=== PATIENT | female | born 2000 | race African-American/Black ===

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

== ENCOUNTER 2022-01-07 14:53 | Emergency (ER) | payer MEDICAID, OTHER ==
[~2022-01-07] VITALS: Ht 157.5 cm; Wt 68.0 kg
[2022-01-07] MEDS ORDERED: ONDANSETRON HCL 4 MG/2 ML VIAL IV ONE (16:00)
[2022-01-07] MEDS ORDERED: SODIUM CHLORIDE 0.9% 1,000 ML IV ONE (16:00)
[2022-01-07] MEDS ORDERED: MORPHINE SULFATE 4 MG/ML SYR/VIAL IV ONE (16:00)
[2022-01-07 18:38] VITALS: BP 123/56
[2022-01-07] MEDS ORDERED: IBU600T PO (19:04)
[2022-01-07] MEDS ORDERED: NEOMOIN6 EX (19:04)
== END 2022-01-07 19:44 | disposition home or self-care (01) ==
LOC: ER 14:53 → EDBD 14:53 → ER 19:44
DX: S00.83XA Contusion of other part of head, initial encounter (principal); G89.4 Chronic pain syndrome; M79.18 Myalgia, other site; V43.62XA Car passenger injured in collision with other type car in traffic accident, initial encounter; Y93.89 Activity, other specified; Y92.89 Other specified places as the place of occurrence of the external cause; Y99.8 Other external cause status
CPT/HCPCS: 70450; 70486; 71250; 72125; 74176; 96361; 96374; 96375; 99285; J2270; J2405; J7030

== ENCOUNTER 2025-01-27 10:50 | Inpatient (IN) | payer MEDICAID, OTHER ==
[~2025-01-27] VITALS: Ht 167.6 cm; Wt 95.5 kg
[~2025-01-27 10:50] MED LIST: IBU600T PO; NEOMOIN6 EX
--- NOTE | 2025-01-27 10:55 | ED.PDOC ---
HPI (NEURO) HPI Comments 24 y.o female with PMHx of seizures, presents to the ED via EMS for an evaluation of a witness seizure by staff at school today. EMS reports on scene, they witnessed another 5 seizures and administrated 5mg of versed. Per parent, patient is on Keppra 1,000mg twice a day, last seizure was one week ago and was taken to [facility] then. Patient has not recently seen her neurologist, been ill, sick contact, fever, or chills. Time Seen by MD: 10:52 Primary Care Provider: UNKNOWN Reviewed Notes: Nurses Notes, Astronomy Department Chair Notes, Medications, Allergies Information Source: Emergency Med Personnel Mode of Arrival: EMS Severity: Moderate Timing: Hours Duration: Since onset Prehospital treatment: Treatment (5mg versed ) Seizure Quality: Tonic-clonic, Mulitple Episodes Seizure Location: Generalized Onset: At rest Circumstances: Spontaneous Symptoms: None Before: Normal During: LOC After: Normal Mentation History of: Seizure Disorder Modifying factors: Nothing Past Medical History PAST MEDICAL HISTORY: Seizures Surgical History: Denies all surgeries AUDIO/VIDEO ENGINEER History: No Pertinent AUDIO/VIDEO ENGINEER History Family History Family History: Unknown Social History Smoker: Non-Smoker Alcohol: Denies ETOH Use Drugs: Denies Drug Use Lives In: Home Constitutional: denies: chills, diaphoresis, fatigue, fever, malaise, sweats, weakness, others EENTM: denies: blurred vision, double vision, ear bleeding, ear discharge, ear drainage, ear pain, ear ringing, eye pain, eye redness, hearing loss, mouth pain, mouth swelling, nasal discharge, nose bleeding, nose congestion, nose pain, photophobia, tearing, throat pain, throat swelling, voice changes, others Respiratory: denies: cough, hemoptysis, orthopnea, SOB at rest, shortness of breath, SOB with excertion, stridor, wheezing, others Cardiovascular: denies: chest pain, dizzy spells, diaphoresis, Dyspnea on exertion, edema, irregular heart beat, left arm pain, lightheadedness, palpitations, PND, syncope, others Gastrointestinal: denies: abdomen distended, abdominal pain, blood streaked bowels, constipated, diarrhea, dysphagia, difficulty swallowing, hematemesis, melena, nausea, poor appetite, poor fluid intake, rectal bleeding, rectal pain, vomiting, others Genitourinary: denies: abnormal vagina bleeding, burning, dyspareunia, dysuria, flank pain, frequency, hematuria, incontinence, pain, , vagina discharge, urgency, others Neurological: reports: seizure; denies: dizziness, fainting, headache, left sided numbness, left sided weakness, numbness, paresthesia, pre-existing deficit, right sided numbness, right sided weakness, speech problems, tingling, tremors, weakness, others Musculoskeletal: denies: back pain, gout, joint pain, joint swelling, muscle pain, muscle stiffness, neck pain, others Integumetry: denies: bruises, change in color, change in hair/nails, dryness, laceration, lesions, lumps, rash, wounds, others Allergic/Immunocompromised: denies: Difficulty Healing, Frequent Infections, Hives, Itching, others Hematologic/Lymphatic: denies: anemia, blood clots, easy bleeding, easy bruising, swollen glands, others Endocrine: denies: excessive hunger, excessive sweating, excessive thirst, excessive urination, flushing, intolerance to cold, intolerance to heat, unexplained weight gain, unexplained weight loss, others Psychiatric: denies: anxiety, bipolar disorder, depression, hopeless, panic disorder, schizophrenia, sleepless, suicidal, others All Other Systems: Reviewed and Negative Physical Exam General Appearance: Moderate Distress HEENT: Normal ENT Inspection, Pharynx Normal, TMs Normal Neck: Full Range of Motion, Non-Tender, Normal, Normal Inspection Respiratory: Chest Non-Tender, Lungs Clear, No Accessory Muscle Use, No Respiratory Distress, Normal Breath Sounds Cardiovascular: No Edema, No JVD, No Murmur, No Gallop, Normal Peripheral Pulses, Regular Rate/Rhythm Breast Exam: Deferred Gastrointestinal: No Organomegaly, Non Tender, No Pulsatile Mass, Normal Bowel Sounds, Soft Genitalia: Deferred Pelvic: Deferred Rectal: Deferred Extremities: No calf tenderness, No pedal edema Musculoskeletal : Apperance: Normal Neurologic: Disoriented Cerebellar Function: NOT DONE Reflexes: NOT DONE Skin: Normal Color Peripheral Pulses: 3+ Radial (R), 3+ Radial (L) Lymphatic: No Adenopathy Was a procedure done? Was a procedure done?: No Differential Diagnosis (SZ) Seizure: Psychogenic Seizure, Closed Head Injury, CVA/TIA, Syncope, Encephalopathy, Epilepsy-Break Through, Epilepsy-Status X-Ray, Labs, Meds, VS Vital Signs Date Time Temp Pulse Resp B/P (MAP) Pulse Ox O2 Delivery O2 Flow Rate FiO2 01/27/25 10:54 98.1 93 20 130/82 (98) 98 98.1 Patient is slightly disoriented. Vitals stable. Seizure disorder. Saturation pristine on room air. Blood pressure within normal limits. Witnessed seizure. Establish intravenous access. Was given fluids pain Was given Keppra. Waiting for family. Time of 1ST Reevaluation: 10:54 Reevaluation 1ST: Unchanged Patient Education/Counseling: Diagnosis, Treatment, Prognosis Family Education/Counseling: Diagnosis, Treatment, Prognosis Departure 1 Departure Time of Disposition: 11:00 Impression: Primary Impression: Metabolic encephalopathy Additional Impression: Seizure Disposition: 09 ADMITTED INPATIENT Admit to: Med Surg Condition: Guarded Critical Care Note Critical Care Time?: Yes (45 min-critical care time only) Critical care comment: Seizure Stability Stability form required: No I personally scribed for IKE CAMPBELL MD ([email or web address]) on 01/27/25 at 10:55. Electronically submitted by Snow Bernal ([facility]). IKE CAMPBELL MD Jan 27, 2025 10:55
[2025-01-27 11:22] LABS: Urine Bacteria None Seen /hpf (None Seen)
[2025-01-27] MEDS: SODIUM CHLORIDE 0.9% 1,000 ML IV ONE ×2 (11:23→15:34)
[2025-01-27] MEDS: levETIRAcetam 1000 mg/100ml 100 ML IV ONE (11:23)
[2025-01-27] MEDS: LORazepam 2MG/ML-1ML VIAL IV ONE ×2 (11:25→18:28)
[2025-01-27 11:37] LABS: Urine Blood 2+ /uL (Negative); Urine Clarity Clear (Clear); Urine Color Colorless (Yellow); Urine Protein, UAD Negative (Negative); Urine Specific Gravity 1.002 (1.001-1.035); Urine Squamous Epithelial Cell FEW /hpf (<5); Urine Urobilinogen Normal (Negative)
[2025-01-27 11:38] LABS: Basophils # (auto) 0 10 ^3/uL (0-0.2); Eosinophils # (auto) 0.1 10 ^3/uL (0-0.8); Hemoglobin 10.5 g/dL (12.2-16.2); Mean Corpuscular Hemoglobin 25.8 pg (28.0-32.0)
[2025-01-27 11:40] LABS: Basophils % (auto) 0.7 % (0.0-2.0); Eosinophils % (auto) 1.1 % (0.0-7.0); Hematocrit 32.6 % (36.0-46.0); Lymphocytes # (auto) 1.8 10 ^3/uL (0.4-5.4); Lymphocytes % (auto) 27.5 % (10.0-50.0); Mean Corpuscular Hgb Conc. 32.3 g/dL (32.0-36.0); Mean Corpuscular Volume 79.9 fL (80.0-100.0); Monocytes # (auto) 0.5 10 ^3/uL (0-1.3); Neutrophils # (auto) 4.2 10 ^3/uL (1.6-8.6); Neutrophils % (auto) 62.7 % (37.0-80.0); Nucleated Red Blood Cells % 0.2 %; Platelet Count (auto) 411 10^3/uL (140-450); Red Blood Cells 4.08 10^6/uL (4.0-5.20); Red Cell Distribution Width 17.3 % (11.8-14.3); White Blood Cell 6.7 10^3/uL (4.4-10.8)
[2025-01-27 11:45] LABS: Chloride 102 mmol/L (98-107); Potassium 4.4 mmol/L (3.5-5.1)
[2025-01-27 11:46] LABS: Anion Gap 8 (5-15); Carbon Dioxide 25 mmol/L (20-31)
[2025-01-27 11:47] LABS: Calcium 10.2 mg/dL (8.7-10.4); Sodium 135 mmol/L (136-145)
[2025-01-27] MEDS: LORazepam 2MG/ML-1ML VIAL ONE (11:48)
[2025-01-27 11:51] LABS: Glucose 86 mg/dL (74-106)
[2025-01-27 11:52] LABS: BUN/Creatinine Ratio 12.8 (10.0-20.0); Blood Urea Nitrogen 11 mg/dL (9-23)
--- NOTE | 2025-01-27 13:23 | DVHHP2 ---
Admitting Diagnosis: Seizure History of Present Illness 24 y/o female patient with history of seizures presents with c/o seizure. Patient was reportedly at school where she had witnessed seizure. EMS witnessed additional seizures and administered Versed. Patient takes Keppra. While in the emergency department the patient was evaluated by the provider, As per provider: Labs, vital signs, and imagining monitored. Patient will be admitted for further evaluation and treatment. I discussed admission with the patient/family and is in agreement to treatment plan. Allergies: Coded Allergies: NO KNOWN ALLERGIES (Unverified , 01/27/25) Home Meds Active Scripts Medroxyprogesterone Acetate (PROVERA) 5 Mg Tab, 2 TAB PO DAILY for 10 Days, #20 TAB Prov:AVEL LARSON BSN 01/28/25 Ibuprofen Micronized (MOTRIN TABLET) 600 Mg Tb, 600 MG PO TID PRN for 10 Days, #30 TAB *Black box warning-NSAIDS can increase risk of CT & hypertension, GI irritation, ulceration, bleed, perferation. Do not use post cardiac surgery. Use short duration/lowest effective dose. Prov:IKE CAMPBELL MD 01/07/22 Rtmgafnw-Melsiagvai-Nialohhzf- (Neosporin + Pain Relief) Relf Max Oin, 1 MAX EX DAILY for 7 Days, #5 OIN Prov:IKE CAMPBELL MD 01/07/22 Reported Medications Diazepam (Anticonvulsant) (Valtoco) 5 Mg/0.1 Ml Spr, 1 SPRAY TIN PRN 01/28/25 Current Medications Current Medications Medications (Trade) Dose Ordered Sig/Raul Route PRN Reason Start Time Stop Time Status Last Admin Enoxaparin Sodium (Lovenox) 40 mg DAILY SC 01/28/25 10:00 01/28/25 09:51 DC Pantoprazole Sodium (Protonix) 40 mg DAILY IV 01/28/25 10:00 01/28/25 09:51 DC 01/28/25 09:33 Levetiracetam 100 ml @ 400 mls/hr BID IV 01/27/25 22:00 01/28/25 09:32 Lorazepam (Ativan Inj) 2 mg Q3HPRN PRN IV SEIZURES 01/28/25 10:00 01/28/25 18:34 Medroxyprogesterone Acetate (Provera Tablet) 10 mg DAILY PO 01/29/25 10:00 Review of Systems Constitutional: denies chills, denies fever, denies malaise Eyes: denies eye pain, denies vision change ENT: denies ear pain, denies headache, denies nasal congestion, denies painful swallowing, denies voice change Cardiovascular: denies chest pain, denies edema, denies orthopnea, denies palpitations, denies paroxysmal nocturnal dyspnea Respiratory: denies cough, denies shortness of breath Gastrointestinal: denies constipation, denies diarrhea, denies nausea, denies vomiting Genitourinary: denies dysuria, denies frequent urination, denies urethral discharge Musculoskeletal: denies back pain, denies joint pain, denies muscle pain Skin: denies bruising, denies itching, denies rash Neurological: denies focal weakness, denies headache, denies sensory changes Psychiatric: denies anxiety, denies depression Endocrine: denies polydipsia, denies polyuria Hematologic/Lymphatic: denies easy bleeding, denies easy bruising, denies enlarged lymph nodes Allergic/Immunologic: denies allergy, denies hives Vital Signs Vital Signs Date Time Temp Pulse Resp B/P (MAP) Pulse Ox O2 Delivery O2 Flow Rate FiO2 01/28/25 17:00 97.5 78 19 125/92 (103) 99 97.5 01/28/25 08:00 Room Air* 0 21 Physical Exam General Appearance: alert, no distress HEENT: EOMI, PERRLA, normal external inspect of ears, no icterus, no nasal drainage Neck: no carotid bruit, no jugular venous distention (JVD), no lymphadenopathy Chest: normal thorax Respiratory: clear to auscultation, normal air movement Cardiovascular: regular rate and rhythm, no diastolic murmur, no jugular venous distention (JVD), no rub, no systolic murmur Abdominal: soft, no hepatomegaly, no mass, no splenomegaly, no tenderness Genitourinary: grossly normal external Musculoskeletal: no joint tenderness, no swelling Extremities: normal pulses, no calf tenderness, no clubbing, no cyanosis, no edema Skin: no bruising, no jaundice, no rash Neurological: alert, No focal deficit Results Labs Test 01/28/25 18:30 01/28/25 05:15 01/27/25 11:00 Range/Units POC Glucose 114 H 70-106 mg/dl White Blood Count 7.3 4.4-10.8 10^3/uL Red Blood Count 3.94 L 4.0-5.20 10^6/uL Hemoglobin 10.0 L 12.2-16.2 g/dL Hematocrit 30.9 L 36.0-46.0 % Mean Corpuscular Volume 78.6 L 80.0-100.0 fL Mean Corpuscular Hemoglobin 25.5 L 28.0-32.0 pg Mean Corpuscular Hemoglobin Concent 32.5 32.0-36.0 g/dL Red Cell Distribution Width 17.3 H 11.8-14.3 % Platelet Count 390 140-450 10^3/uL Mean Platelet Volume 7.8 6.9-10.8 fL Neutrophils (%) (Auto) 62.3 37.0-80.0 % Lymphocytes (%) (Auto) 29.3 10.0-50.0 % Monocytes (%) (Auto) 6.0 0.0-12.0 % Eosinophils (%) (Auto) 2.0 0.0-7.0 % Basophils (%) (Auto) 0.4 0.0-2.0 % Neutrophils # (Auto) 4.6 1.6-8.6 10 ^3/uL Lymphocytes # (Auto) 2.1 0.4-5.4 10 ^3/uL Monocytes # (Auto) 0.4 0-1.3 10 ^3/uL Eosinophils # (Auto) 0.1 0-0.8 10 ^3/uL Basophils # (Auto) 0 0-0.2 10 ^3/uL Nucleated Red Blood Cells 0.1 % Sodium Level 137 136-145 mmol/L Potassium Level 4.0 3.5-5.1 mmol/L Chloride Level 104 98-107 mmol/L Carbon Dioxide Level 23 20-31 mmol/L Anion Gap 10 5-15 Blood Urea Nitrogen 10 9-23 mg/dL Creatinine 0.79 0.550-1.02 mg/dL Glomerular Filtration Rate Calc 108 >90 mL/min BUN/Creatinine Ratio 12.7 10.0-20.0 Serum Glucose 82 74-106 mg/dL Calcium Level 9.6 8.7-10.4 mg/dL Total Bilirubin 0.4 0.2-1.0 mg/dL Aspartate Amino Transferase (AST) 19 13-40 U/L Alanine Aminotransferase (ALT) 14 7-40 U/L Alkaline Phosphatase 57 46-116 U/L Total Protein 7.6 5.7-8.2 g/dL Albumin 4.3 3.2-4.8 g/dL Urine Color Colorless Yellow Urine Clarity Clear Clear Urine pH 6.0 5.0-9.0 Urine Specific [place] 1.002 1.001-1.035 Urine Protein Negative Negative Urine Ketones Negative Negative Urine Blood 2+ H Negative /uL Urine Nitrite Negative Negative Urine Bilirubin Negative Negative Urine Urobilinogen Normal Negative mg/dL Urine Leukocyte Esterase Negative Negative /uL Urine RBC None seen 0 - 4 /hpf Urine Microscopic WBC 0-5 /HPF Urine Squamous Epithelial Cells Few <5 /hpf Urine Bacteria None seen None Seen /hpf Urine Glucose Normal Normal mg/dL Plan 1. Breakthrough seizure Monitor, seizure precautions, antiepileptics, neurology consult 2. Obesity Monitor, cardiac diet 3. Epilepsy Monitor, antiepileptics, neurology consult Plan discussed with: Patient, Other ALE BIANCHI NP Jan 27, 2025 13:23
[2025-01-27] MEDS ORDERED: NITROGLYCERIN 0.4 MG SL TAB SL PRN (13:30)
[2025-01-27] MEDS ORDERED: ACETAMINOPHEN 325 MG TAB PO PRN (13:30)
[2025-01-27] MEDS ORDERED: HYDROcodone-ACET 5/325MG TAB PO PRN (13:30)
[2025-01-27] MEDS ORDERED: MORPHINE SULFATE INJ 2 MG/ml SYRG IV PRN (13:30)
[2025-01-27 19:30] VITALS: PULSE 72; RESP 17; O2SAT 100
[2025-01-27 21:02] VITALS: BP 117/55; PULSE 68; RESP 18; TEMP 98.5; O2SAT 98
[2025-01-27] MEDS: levETIRAcetam 1000 mg/100ml 100 ML IV SCH (22:24)
[2025-01-28] VITALS (8 sets, daily range): BP systolic 101–125; BP diastolic 52–92; PULSE 60–78; RESP 16–99; TEMP 97.5–98.3; O2SAT 98–100
[2025-01-28 07:03] LABS: Basophils # (auto) 0 10 ^3/uL (0-0.2); Basophils % (auto) 0.4 % (0.0-2.0); Eosinophils # (auto) 0.1 10 ^3/uL (0-0.8); Hematocrit 30.9 % (36.0-46.0); Lymphocytes # (auto) 2.1 10 ^3/uL (0.4-5.4); Lymphocytes % (auto) 29.3 % (10.0-50.0); Mean Corpuscular Hemoglobin 25.5 pg (28.0-32.0); Mean Corpuscular Hgb Conc. 32.5 g/dL (32.0-36.0); Mean Corpuscular Volume 78.6 fL (80.0-100.0); Monocytes # (auto) 0.4 10 ^3/uL (0-1.3); Neutrophils # (auto) 4.6 10 ^3/uL (1.6-8.6); Neutrophils % (auto) 62.3 % (37.0-80.0); Nucleated Red Blood Cells % 0.1 %; Platelet Count (auto) 390 10^3/uL (140-450); Red Blood Cells 3.94 10^6/uL (4.0-5.20); Red Cell Distribution Width 17.3 % (11.8-14.3); White Blood Cell 7.3 10^3/uL (4.4-10.8)
[2025-01-28 07:10] LABS: Alanine Aminotransferase 14 U/L (7-40); Albumin 4.3 g/dL (3.2-4.8); Alkaline Phosphatase 57 U/L (46-116); Anion Gap 10 (5-15); Aspartate Aminotransferase 19 U/L (13-40); BUN/Creatinine Ratio 12.7 (10.0-20.0); Blood Urea Nitrogen 10 mg/dL (9-23); Calcium 9.6 mg/dL (8.7-10.4); Carbon Dioxide 23 mmol/L (20-31); Chloride 104 mmol/L (98-107); Glucose 82 mg/dL (74-106); Sodium 137 mmol/L (136-145); Total Protein 7.6 g/dL (5.7-8.2)
[2025-01-28 07:11] LABS: Bilirubin, Total 0.4 mg/dL (0.2-1.0)
[2025-01-28] MEDS: PANTOPRAZOLE 40 MG/10 ML VIAL INJ IV SCH (09:33)
[2025-01-28] MEDS: ENOXAPARIN SOD 40 MG/0.4 ML SYRINGE SC SCH (09:33)
[2025-01-28] MEDS ORDERED: DIAZ5SPR NAS (09:50)
--- NOTE | 2025-01-28 09:52 | DVHPN2 ---
Progress Note - Dictate Date Seen: Jan 28, 2025 Medical Necessity Reason Pt with a Central, PICC or Fol: No vital signs Vital Sign Date Time Temp Pulse Resp B/P (MAP) Pulse Ox O2 Delivery O2 Flow Rate FiO2 01/28/25 04:38 97.8 63 18 101/60 (74) 100 97.8 01/27/25 21:00 Room Air* 0 21 Total Intake and Output 01/27/25 01/27/25 01/28/25 15:00 23:00 07:00 Intake Total 1100 ml 150 ml 1000 ml Balance 1100 ml 150 ml 1000 ml medications Current Medications Medications Dose Ordered Sig/Raul Route Start Time Stop Time Status Last Admin Dose Admin Acetaminophen/ Hydrocodone Bitart 1 tab Q4HP PRN PO 01/27/25 13:30 Ondansetron HCl 4 mg Q4HP PRN IV 01/27/25 13:30 Enoxaparin Sodium 40 mg DAILY SC 01/28/25 10:00 Acetaminophen 650 mg Q6HP PRN PO 01/27/25 13:30 Nitroglycerin 0.4 mg Q5MINP PRN SL 01/27/25 13:30 Morphine Sulfate 2 mg Q30M PRN IV 01/27/25 13:30 Pantoprazole Sodium 40 mg DAILY IV 01/28/25 10:00 01/28/25 09:33 40 MG Levetiracetam 100 ml @ 400 mls/hr BID IV 01/27/25 22:00 01/28/25 09:32 400 MLS/HR Lorazepam 2 mg Q3HPRN PRN IV 01/28/25 10:00 UNV objective General Appearance: alert, no distress HEENT: EOMI, PERRLA, normal external inspect of ears, no icterus, no nasal drainage Neck: no carotid bruit, no jugular venous distention (JVD), no lymphadenopathy Chest: normal thorax Respiratory: clear to auscultation, normal air movement Cardiovascular: regular rate and rhythm, no diastolic murmur, no jugular venous distention (JVD), no rub, no systolic murmur Abdominal: soft, no hepatomegaly, no mass, no splenomegaly, no tenderness Genitourinary: grossly normal external Musculoskeletal: no joint tenderness, no swelling Extremities: normal pulses, no calf tenderness, no clubbing, no cyanosis, no edema Skin: no bruising, no jaundice, no rash Neurological: alert, No focal deficit laboratory and microbiology Laboratory Tests 01/28/25 05:15 Test 01/28/25 05:15 Range/Units Serum Glucose 82 74-106 mg/dL Problem List 1. Breakthrough seizure Monitor, seizure precautions, antiepileptics, neurology consult 2. Obesity Monitor, cardiac diet 3. Epilepsy Monitor, antiepileptics, neurology consult Assessment/Plan Subjective: Patient is awake and alert. Objective: Patient was admitted for breakthrough seizure. Apparently patient was having seizures while in school. No seizures reported while in hospital. Patient remains on IV Keppra. Patient was seen by neurology. Patient has chronic anemia. She states she has had her menstrual cycle for 3 years straight. Plan: Continue antiepileptics. Ativan as needed for breakthrough seizure. STOCK PARTS INSPECTOR consult. Monitor daily labs. Continue seizure precautions. Plan discussed with: Patient, Other ALE BIANCHI NP Jan 28, 2025 09:52
[2025-01-28] MEDS: ONDANSETRON HCL 4 MG/2 ML VIAL IV PRN (12:56)
[2025-01-28] MEDS ORDERED: MEDR5TAB28 PO (13:30)
--- NOTE | 2025-01-28 14:55 | DVHINCON2 ---
Date of service: Jan 28, 2025 Referring Physician hospitalist Reason for Consultation dub History of Present Illness pt is admitted for seizures ,she gives hx oF HEAVY BLEEDING .PELVIC US IS NL .PT IS NOT SEXUALLY ACTIVE.SHE IS NOT ON ANY CONTRACEPTIVES Past Medical History SEIZURES Past Surgical History NONE Family History NA Social History NA Patient Family History: Diabetes mellitus GRANDMOTHER Allergies: Coded Allergies: NO KNOWN ALLERGIES (Unverified , 01/27/25) Home Meds Active Scripts Medroxyprogesterone Acetate (PROVERA) 5 Mg Tab, 2 TAB PO DAILY for 10 Days, #20 TAB Prov:AVEL LARSON BSN 01/28/25 Ibuprofen Micronized (MOTRIN TABLET) 600 Mg Tb, 600 MG PO TID PRN for 10 Days, #30 TAB *Black box warning-NSAIDS can increase risk of [place] & hypertension, GI irritation, ulceration, bleed, perferation. Do not use post cardiac surgery. Use short duration/lowest effective dose. Prov:IKE CAMPBELL MD 01/07/22 Boquqyre-Nepyugyejz-Kcumkqbbn- (Neosporin + Pain Relief) Relf Max Oin, 1 MAX EX DAILY for 7 Days, #5 OIN Prov:IKE CAMPBELL MD 01/07/22 Reported Medications Diazepam (Anticonvulsant) (Valtoco) 5 Mg/0.1 Ml Spr, 1 SPRAY TIN PRN 01/28/25 Current Medications Current Medications Medications (Trade) Dose Ordered Sig/Raul Route PRN Reason Start Time Stop Time Status Last Admin Enoxaparin Sodium (Lovenox) 40 mg DAILY SC 01/28/25 10:00 01/28/25 09:51 DC Pantoprazole Sodium (Protonix) 40 mg DAILY IV 01/28/25 10:00 01/28/25 09:51 DC 01/28/25 09:33 Levetiracetam 100 ml @ 400 mls/hr BID IV 01/27/25 22:00 01/28/25 09:32 Lorazepam (Ativan Inj) 2 mg Q3HPRN PRN IV SEIZURES 01/28/25 10:00 Medroxyprogesterone Acetate (Provera Tablet) 10 mg DAILY PO 01/29/25 10:00 Review of Systems Constitutional: no fever, chill, weight loss HEENT: no eye pain, no hearing loss, no oral lesion, no scleral icterus Heart: no chest pain, no chest pressure Lung: no cough, no dyspnea with exertion Abdomen: see HPI : no pain with urination, normal appearing urine Musculoskeletal: no joint pain, no muscle pain Neurological: POS FOR SEIZURES no loss of sensation, no weakness in extremities Pysch: no depression, no anxiety Derm: no rash, no jaundice Vital Signs Vital Signs Date Time Temp Pulse Resp B/P (MAP) Pulse Ox O2 Delivery O2 Flow Rate FiO2 01/28/25 09:00 97.7 76 19 109/52 (71) 99 97.7 01/28/25 08:00 Room Air* 0 21 Physical Exam SKIN: [NL ] HEENT: [NL] NECK: [NL] CARDIAC: [RRR] PULMONARY: [CTA] ABDOMEN: SOFT ,NT PELVIC -SOME VAG BLEEDING NOTED EXT -NO CCE Labs/Diagnostic Data Labs Test 01/28/25 05:15 01/27/25 20:39 01/27/25 11:00 Range/Units White Blood Count 7.3 4.4-10.8 10^3/uL Red Blood Count 3.94 L 4.0-5.20 10^6/uL Hemoglobin 10.0 L 12.2-16.2 g/dL Hematocrit 30.9 L 36.0-46.0 % Mean Corpuscular Volume 78.6 L 80.0-100.0 fL Mean Corpuscular Hemoglobin 25.5 L 28.0-32.0 pg Mean Corpuscular Hemoglobin Concent 32.5 32.0-36.0 g/dL Red Cell Distribution Width 17.3 H 11.8-14.3 % Platelet Count 390 140-450 10^3/uL Mean Platelet Volume 7.8 6.9-10.8 fL Neutrophils (%) (Auto) 62.3 37.0-80.0 % Lymphocytes (%) (Auto) 29.3 10.0-50.0 % Monocytes (%) (Auto) 6.0 0.0-12.0 % Eosinophils (%) (Auto) 2.0 0.0-7.0 % Basophils (%) (Auto) 0.4 0.0-2.0 % Neutrophils # (Auto) 4.6 1.6-8.6 10 ^3/uL Lymphocytes # (Auto) 2.1 0.4-5.4 10 ^3/uL Monocytes # (Auto) 0.4 0-1.3 10 ^3/uL Eosinophils # (Auto) 0.1 0-0.8 10 ^3/uL Basophils # (Auto) 0 0-0.2 10 ^3/uL Nucleated Red Blood Cells 0.1 % Sodium Level 137 136-145 mmol/L Potassium Level 4.0 3.5-5.1 mmol/L Chloride Level 104 98-107 mmol/L Carbon Dioxide Level 23 20-31 mmol/L Anion Gap 10 5-15 Blood Urea Nitrogen 10 9-23 mg/dL Creatinine 0.79 0.550-1.02 mg/dL Glomerular Filtration Rate Calc 108 >90 mL/min BUN/Creatinine Ratio 12.7 10.0-20.0 Serum Glucose 82 74-106 mg/dL Calcium Level 9.6 8.7-10.4 mg/dL Total Bilirubin 0.4 0.2-1.0 mg/dL Aspartate Amino Transferase (AST) 19 13-40 U/L Alanine Aminotransferase (ALT) 14 7-40 U/L Alkaline Phosphatase 57 46-116 U/L Total Protein 7.6 5.7-8.2 g/dL Albumin 4.3 3.2-4.8 g/dL POC Glucose 124 H 70-106 mg/dl Urine Color Colorless Yellow Urine Clarity Clear Clear Urine pH 6.0 5.0-9.0 Urine Specific [place] 1.002 1.001-1.035 Urine Protein Negative Negative Urine Ketones Negative Negative Urine Blood 2+ H Negative /uL Urine Nitrite Negative Negative Urine Bilirubin Negative Negative Urine Urobilinogen Normal Negative mg/dL Urine Leukocyte Esterase Negative Negative /uL Urine RBC None seen 0 - 4 /hpf Urine Microscopic WBC 0-5 /HPF Urine Squamous Epithelial Cells Few <5 /hpf Urine Bacteria None seen None Seen /hpf Urine Glucose Normal Normal mg/dL Primary Diagnosis SEIZURE DISORDER 2' Diagnosis/Comorbidities DUB Plan PT IS TO FU ON OUT PT BASIS,SHE MAY BENEFIT FROM DEPOPROVERA . START PT ON PROVERA TODAY 10MG [id number] WILL SIGN OFF THANK YOU Plan discussed with: Patient Visit Coding OBGYN Date of Service: Jan 28, 2025 Billing Provider: AMERICO GRIGGS DO FIRE CONTROL TECHNICIAN G Common Visit Codes: 05870-JAFCYIF INP/OBS CARE (HIGH) FIRE CONTROL TECHNICIAN G Consultation Codes: [id number] CONSULT <80MIN AMERICO GRIGGS DO Jan 28, 2025 14:55
[2025-01-28] MEDS: LORazepam 2MG/ML-1ML VIAL IV PRN (18:34)
--- NOTE | 2025-01-28 23:47 | DVHINCON2 ---
Date of service: Jan 28, 2025 Referring Physician Carmen Reason for Consultation Breakthrough seizure History of Present Illness Ms. Maharaj is a 24 years old right-handed female with a history of obesity and seizure disorder, she was brought to the [facility] on 01/27/2025 with a chief company of seizure activity. At this time, the patient arousable, and she was oriented x4 on waking up, she provided the following history On 01/27/2025, she had two seizure activity in her school, according to the ER note, the EMS witnessed another five seizures on scene, and all of were shaking all over body with company amnesia. and another two in the ER (ER @ 01/27/25 1827 note documented seizure-like activity) She was one more seizure on 01/28/2025 A seizure disorder started in 08/2024, she was company amnesia about her seizure, but was said to have shaking all over body with loss of consciousness, she was had biting but no incontinence. She was sometimes has aura symptoms: Blurred vision, headache, nausea, dizziness/lightheadedness She does not not remember how often she has seizure She sees Dr. Godwin, a local neurologist, she is on Keppra 1000 mg b.i.d. She reports a good compliance to the treatment, she denies recent acute illness Urinalysis, 01/27/2025: Unremarkable CBC/HB/PLT/MCV, 01/28/2025: 7.3/10/390/78.6 CMP, 01/28/2025: Unremarkable CT head, 01/07/2022: 1. No acute intracranial abnormality identified. 2. Right frontal and facial scalp hematoma. Past Medical History Seizures Past Surgical History No surgeries Family History: Diabetes mellitus GRANDMOTHER Family History Diabetes Social History She is not a tobacco smoker she denies history of drug or alcohol abuse Allergies: Coded Allergies: NO KNOWN ALLERGIES (Unverified , 01/27/25) Home Meds Active Scripts Medroxyprogesterone Acetate (PROVERA) 5 Mg Tab, 2 TAB PO DAILY for 10 Days, #20 TAB Prov:AVEL LARSON BSN 01/28/25 Ibuprofen Micronized (MOTRIN TABLET) 600 Mg Tb, 600 MG PO TID PRN for 10 Days, #30 TAB *Black box warning-NSAIDS can increase risk of MS & hypertension, GI irritation, ulceration, bleed, perferation. Do not use post cardiac surgery. Use short duration/lowest effective dose. Prov:IKE CAMPBELL MD 01/07/22 Apcsiatz-Iuzosucxtv-Cjpeydzuo- (Neosporin + Pain Relief) Relf Max Oin, 1 MAX EX DAILY for 7 Days, #5 OIN Prov:IKE CAMPBELL MD 01/07/22 Reported Medications Diazepam (Anticonvulsant) (Valtoco) 5 Mg/0.1 Ml Spr, 1 SPRAY TIN PRN 01/28/25 Current Medications Current Medications Medications (Trade) Dose Ordered Sig/Raul Route PRN Reason Start Time Stop Time Status Last Admin Enoxaparin Sodium (Lovenox) 40 mg DAILY SC 01/28/25 10:00 01/28/25 09:51 DC Pantoprazole Sodium (Protonix) 40 mg DAILY IV 01/28/25 10:00 01/28/25 09:51 DC 01/28/25 09:33 Lorazepam (Ativan Inj) 2 mg Q3HPRN PRN IV SEIZURES 01/28/25 10:00 01/28/25 18:34 Medroxyprogesterone Acetate (Provera Tablet) 10 mg DAILY PO 01/29/25 10:00 Review of Systems As above, the other systems are negative Vital Signs Vital Signs Date Time Temp Pulse Resp B/P (MAP) Pulse Ox O2 Delivery O2 Flow Rate FiO2 01/28/25 17:00 97.5 78 19 125/92 (103) 99 97.5 01/28/25 08:00 Room Air* 0 21 Physical Exam GENERAL EXAM: General: the patient is well developed and nourished. No acute distress. HEENT: Normocephalic, neck is supple, no carotid bruits. No mass. RESPIRATORY: Normal respiratory effort with symmetrical lung expansion. Lungs clear to auscultation. CARDIOVASCULAR: Regular rate and rhythm with no murmurs. S1, S2. ABDOMEN: Soft, nontender, normal bowel sound NEUROLOGICAL: MENTAL STATUS: Awake and alert. Oriented to person, place, time and general circumstances. Able to give personal history. SPEECH, LANGUAGE, HIGHER CORTICAL FUNCTION: no aphasia or dysathria. CRANIAL NERVES: #2: Intact visual orona to confrontation. The optic discs were sharp. #3,4,6: Pupils are equal, round and reactive. EOMs full and conjugate. No nystagmus. #5: Facial sensation intact in all three divisions bilaterally. Mandibular strength intact. #7: Facial muscles symmetrical and strength intact. #8: Hearing grossly normal to voice. #9,10: Uvula and soft palate rise in the midline. Swallow and voice are normal. #11: Trapezius and sternomastoid strength intact bilaterally. #12: Tongue midline. No fasciculations or atrophy. SENSATION: Sensation to touch and pinprick is normal. MOTOR: Normal tone in the upper and lower extremity. Normal muscle bulk. No fasciculations. No abnormal movements or posturing. Muscle strength of the major groups in the upper extremities is 5/5. Muscle strength of the major groups in the lower extremities is 5/5. REFLEXES: Deep tendon reflexes normal and symmetrical. No pathological reflexes. CEREBELLAR/COORDINATION: Finger to nose and heel to stone are normal bilaterally. GAIT/STATION: deferred. Labs/Diagnostic Data Labs Test 01/28/25 18:30 01/28/25 05:15 01/27/25 11:00 Range/Units POC Glucose 114 H 70-106 mg/dl White Blood Count 7.3 4.4-10.8 10^3/uL Red Blood Count 3.94 L 4.0-5.20 10^6/uL Hemoglobin 10.0 L 12.2-16.2 g/dL Hematocrit 30.9 L 36.0-46.0 % Mean Corpuscular Volume 78.6 L 80.0-100.0 fL Mean Corpuscular Hemoglobin 25.5 L 28.0-32.0 pg Mean Corpuscular Hemoglobin Concent 32.5 32.0-36.0 g/dL Red Cell Distribution Width 17.3 H 11.8-14.3 % Platelet Count 390 140-450 10^3/uL Mean Platelet Volume 7.8 6.9-10.8 fL Neutrophils (%) (Auto) 62.3 37.0-80.0 % Lymphocytes (%) (Auto) 29.3 10.0-50.0 % Monocytes (%) (Auto) 6.0 0.0-12.0 % Eosinophils (%) (Auto) 2.0 0.0-7.0 % Basophils (%) (Auto) 0.4 0.0-2.0 % Neutrophils # (Auto) 4.6 1.6-8.6 10 ^3/uL Lymphocytes # (Auto) 2.1 0.4-5.4 10 ^3/uL Monocytes # (Auto) 0.4 0-1.3 10 ^3/uL Eosinophils # (Auto) 0.1 0-0.8 10 ^3/uL Basophils # (Auto) 0 0-0.2 10 ^3/uL Nucleated Red Blood Cells 0.1 % Sodium Level 137 136-145 mmol/L Potassium Level 4.0 3.5-5.1 mmol/L Chloride Level 104 98-107 mmol/L Carbon Dioxide Level 23 20-31 mmol/L Anion Gap 10 5-15 Blood Urea Nitrogen 10 9-23 mg/dL Creatinine 0.79 0.550-1.02 mg/dL Glomerular Filtration Rate Calc 108 >90 mL/min BUN/Creatinine Ratio 12.7 10.0-20.0 Serum Glucose 82 74-106 mg/dL Calcium Level 9.6 8.7-10.4 mg/dL Total Bilirubin 0.4 0.2-1.0 mg/dL Aspartate Amino Transferase (AST) 19 13-40 U/L Alanine Aminotransferase (ALT) 14 7-40 U/L Alkaline Phosphatase 57 46-116 U/L Total Protein 7.6 5.7-8.2 g/dL Albumin 4.3 3.2-4.8 g/dL Urine Color Colorless Yellow Urine Clarity Clear Clear Urine pH 6.0 5.0-9.0 Urine Specific [place] 1.002 1.001-1.035 Urine Protein Negative Negative Urine Ketones Negative Negative Urine Blood 2+ H Negative /uL Urine Nitrite Negative Negative Urine Bilirubin Negative Negative Urine Urobilinogen Normal Negative mg/dL Urine Leukocyte Esterase Negative Negative /uL Urine RBC None seen 0 - 4 /hpf Urine Microscopic WBC 0-5 /HPF Urine Squamous Epithelial Cells Few <5 /hpf Urine Bacteria None seen None Seen /hpf Urine Glucose Normal Normal mg/dL Assessment Grand mal seizure Status epileptics with a typical features: seven grand mal seizure attacks in a short period of time, with normal lab reports, and fast recovery She does not drive Plan/Recommendation Monitoring Supportive treatment Telemetry EEG Keppra 1000 mg b.i.d. Ativan for seizure breakthrough Follow up her doctors, including neurologist on discharge Plan discussed with: Patient, Other JAMEL GARCIA MD Jan 28, 2025 23:47
[2025-01-29] VITALS (9 sets, daily range): BP systolic 90–110; BP diastolic 50–66; PULSE 18–78; RESP 16–18; TEMP 97.9–98.3; O2SAT 99–100
[2025-01-29] MEDS: medroxyPROGESTERone ACETATE 5 MG TAB PO SCH (09:42)
[2025-01-29] MEDS ORDERED: MEDR5TAB28 PO (14:17)
--- NOTE | 2025-01-29 14:19 | DVHDS2 ---
Discharge Summary Date of Admission Jan 27, 2025 at 13:21 Date of Discharge: Jan 29, 2025 Labs/Diagnostic Data: Laboratory Results Test 01/28/25 18:30 01/28/25 05:15 01/27/25 11:00 POC Glucose 114 mg/dl (70-106) White Blood Count 7.3 10^3/uL (4.4-10.8) Red Blood Count 3.94 10^6/uL (4.0-5.20) Hemoglobin 10.0 g/dL (12.2-16.2) Hematocrit 30.9 % (36.0-46.0) Mean Corpuscular Volume 78.6 fL (80.0-100.0) Mean Corpuscular Hemoglobin 25.5 pg (28.0-32.0) Mean Corpuscular Hemoglobin Concent 32.5 g/dL (32.0-36.0) Red Cell Distribution Width 17.3 % (11.8-14.3) Platelet Count 390 10^3/uL (140-450) Mean Platelet Volume 7.8 fL (6.9-10.8) Neutrophils (%) (Auto) 62.3 % (37.0-80.0) Lymphocytes (%) (Auto) 29.3 % (10.0-50.0) Monocytes (%) (Auto) 6.0 % (0.0-12.0) Eosinophils (%) (Auto) 2.0 % (0.0-7.0) Basophils (%) (Auto) 0.4 % (0.0-2.0) Neutrophils # (Auto) 4.6 10 ^3/uL (1.6-8.6) Lymphocytes # (Auto) 2.1 10 ^3/uL (0.4-5.4) Monocytes # (Auto) 0.4 10 ^3/uL (0-1.3) Eosinophils # (Auto) 0.1 10 ^3/uL (0-0.8) Basophils # (Auto) 0 10 ^3/uL (0-0.2) Nucleated Red Blood Cells 0.1 % Sodium Level 137 mmol/L (136-145) Potassium Level 4.0 mmol/L (3.5-5.1) Chloride Level 104 mmol/L (98-107) Carbon Dioxide Level 23 mmol/L (20-31) Anion Gap 10 (5-15) Blood Urea Nitrogen 10 mg/dL (9-23) Creatinine 0.79 mg/dL (0.550-1.02) Glomerular Filtration Rate Calc 108 mL/min (>90) BUN/Creatinine Ratio 12.7 (10.0-20.0) Serum Glucose 82 mg/dL (74-106) Calcium Level 9.6 mg/dL (8.7-10.4) Total Bilirubin 0.4 mg/dL (0.2-1.0) Aspartate Amino Transferase (AST) 19 U/L (13-40) Alanine Aminotransferase (ALT) 14 U/L (7-40) Alkaline Phosphatase 57 U/L (46-116) Total Protein 7.6 g/dL (5.7-8.2) Albumin 4.3 g/dL (3.2-4.8) Urine Color Colorless (Yellow) Urine Clarity Clear (Clear) Urine pH 6.0 (5.0-9.0) Urine Specific [place] 1.002 (1.001-1.035) Urine Protein Negative (Negative) Urine Ketones Negative (Negative) Urine Blood 2+ /uL (Negative) Urine Nitrite Negative (Negative) Urine Bilirubin Negative (Negative) Urine Urobilinogen Normal mg/dL (Negative) Urine Leukocyte Esterase Negative /uL (Negative) Urine RBC None seen /hpf (0 - 4) Urine Microscopic WBC /HPF (0-5) Urine Squamous Epithelial Cells Few /hpf (<5) Urine Bacteria None seen /hpf (None Seen) Urine Glucose Normal mg/dL (Normal) Other Laboratory Tests 01/28/25 05:15 Final Diagnosis/Problems List breakthrough seizure menorrhagia Discharge Disposition: Home Discharge Instruct/Medications Diet: Cardiac 2g Na,low cholest Activity: No Restrictions, As Tolerated Follow Up/Referral: pcp 1 week Discharge Statement: "Patient was advised to return to the ER or call 911 if any headaches, dizziness, shortness of breath, chest pain, abdominal pain, bleeding, fevers, or worsening of medical condition. Patient was counseled about treatment plan, medications, possible side effects, patientverbalized understanding. All questions were answered to the best of my ability. This discharge took greater then 30 minutes in planning, reviewing documentation, counseling the patient, and discussing with other team members." ASSESSMENT ASSESSMENT Assessment breakthrough seizure menorrhagia ALE BIANCHI NP Jan 29, 2025 14:19
--- NOTE | 2025-01-29 20:09 | DVHPN2 ---
Progress Note - Dictate Date Seen: Jan 29, 2025 Medical Necessity Reason Pt with a Central, PICC or Fol: No vital signs Vital Sign Date Time Temp Pulse Resp B/P (MAP) Pulse Ox O2 Delivery O2 Flow Rate FiO2 01/29/25 16:49 97.9 57 16 94/51 (65) 100 97.9 01/29/25 07:30 Room Air* 0 21 Total Intake and Output 01/28/25 01/28/25 01/29/25 15:00 23:00 07:00 Intake Total 925 ml 250 ml Balance 925 ml 250 ml medications Current Medications Medications Dose Ordered Sig/Raul Route Start Time Stop Time Status Last Admin Dose Admin Acetaminophen/ Hydrocodone Bitart 1 tab Q4HP PRN PO 01/27/25 13:30 Ondansetron HCl 4 mg Q4HP PRN IV 01/27/25 13:30 01/29/25 06:38 4 MG Acetaminophen 650 mg Q6HP PRN PO 01/27/25 13:30 Nitroglycerin 0.4 mg Q5MINP PRN SL 01/27/25 13:30 Morphine Sulfate 2 mg Q30M PRN IV 01/27/25 13:30 Levetiracetam 100 ml @ 400 mls/hr BID IV 01/27/25 22:00 01/29/25 08:58 400 MLS/HR Lorazepam 2 mg Q3HPRN PRN IV 01/28/25 10:00 01/29/25 06:26 2 MG Medroxyprogesterone Acetate 10 mg DAILY PO 01/29/25 10:00 01/29/25 09:42 10 MG objective General Appearance: alert, no distress HEENT: EOMI, PERRLA, normal external inspect of ears, no icterus, no nasal drainage Neck: no carotid bruit, no jugular venous distention (JVD), no lymphadenopathy Chest: normal thorax Respiratory: clear to auscultation, normal air movement Cardiovascular: regular rate and rhythm, no diastolic murmur, no jugular venous distention (JVD), no rub, no systolic murmur Abdominal: soft, no hepatomegaly, no mass, no splenomegaly, no tenderness Genitourinary: grossly normal external Musculoskeletal: no joint tenderness, no swelling Extremities: normal pulses, no calf tenderness, no clubbing, no cyanosis, no edema Skin: no bruising, no jaundice, no rash Neurological: alert, No focal deficit laboratory and microbiology Laboratory Tests 01/28/25 05:15 Test 01/28/25 05:15 Range/Units Serum Glucose 82 74-106 mg/dL Problem List 1. Breakthrough seizure Monitor, seizure precautions, antiepileptics, neurology consult 2. Obesity Monitor, cardiac diet 3. Epilepsy Monitor, antiepileptics, neurology consult 4. Menorrhagia Monitor, SOLAR ENERGY ENGINEER consult, start Provera Assessment/Plan Subjective: Patient is awake and alert. Objective: Patient was admitted for breakthrough seizures. She reportedly had a breakthrough seizure last night and early this morning. Currently, patient is receiving EEG. Plan: Continue epileptic seizure precautions. Replace electrolytes as needed. Plan discussed with: Patient, Other ALE BIANCHI NP Jan 29, 2025 20:09
--- NOTE | 2025-01-29 20:59 | DVHPN2 ---
Progress Note - Dictate Date Seen: Jan 29, 2025 Medical Necessity Reason Pt with a Central, PICC or Fol: No Subjective Ms. Maharaj is a 24 years old right-handed female with a history of obesity and seizure disorder, she was brought to the [facility] on 01/27/2025 with a chief company of seizure activity. I have seen and examined the patient, I have discussed with her nurse, she was alert and fully oriented, reading her iPad in the bed, she confirm a history of seizure disorder she does not remember after she was seizure, three or 4 times with company amnesia She had one grand mal seizure attack today in that she had shivering like activity all over the body with eyes rolling back, complete amnesia, she open her eyes 1 minutes after the event was over, and was able to talk properly 2 minutes after the event was over. There was no oral trauma, incontinence, increased saliva in the event Urinalysis, 01/27/2025: Unremarkable CBC/HB/PLT/MCV, 01/28/2025: 7.3/10/390/78.6 CMP, 01/28/2025: Unremarkable CT head, 01/07/2022: 1. No acute intracranial abnormality identified. 2. Right frontal and facial scalp hematoma vital signs Vital Sign Date Time Temp Pulse Resp B/P (MAP) Pulse Ox O2 Delivery O2 Flow Rate FiO2 01/29/25 16:49 97.9 57 16 94/51 (65) 100 97.9 01/29/25 07:30 Room Air* 0 21 Total Intake and Output 01/28/25 01/28/25 01/29/25 15:00 23:00 07:00 Intake Total 925 ml 250 ml Balance 925 ml 250 ml medications Current Medications Medications Dose Ordered Sig/Raul Route Start Time Stop Time Status Last Admin Dose Admin Acetaminophen/ Hydrocodone Bitart 1 tab Q4HP PRN PO 01/27/25 13:30 Ondansetron HCl 4 mg Q4HP PRN IV 01/27/25 13:30 01/29/25 06:38 4 MG Acetaminophen 650 mg Q6HP PRN PO 01/27/25 13:30 Nitroglycerin 0.4 mg Q5MINP PRN SL 01/27/25 13:30 Morphine Sulfate 2 mg Q30M PRN IV 01/27/25 13:30 Levetiracetam 100 ml @ 400 mls/hr BID IV 01/27/25 22:00 01/29/25 08:58 400 MLS/HR Lorazepam 2 mg Q3HPRN PRN IV 01/28/25 10:00 01/29/25 06:26 2 MG Medroxyprogesterone Acetate 10 mg DAILY PO 01/29/25 10:00 01/29/25 09:42 10 MG objective General: the patient is well developed and nourished. No acute distress. MENTAL STATUS: Awake and alert. Oriented to person, place, time and general circumstances. Able to give personal history. SPEECH, LANGUAGE, HIGHER CORTICAL FUNCTION: no aphasia or dysathria. CRANIAL NERVES: Pupils are equal, round and reactive. EOMs full and conjugate. No nystagmus. Facial sensation intact in all three divisions bilaterally. Mandibular strength intact. Facial muscles symmetrical and strength intact. SENSATION: Sensation to touch and pinprick is normal. MOTOR: Normal tone in the upper and lower extremity. Normal muscle bulk. No fasciculations. No abnormal movements or posturing. Muscle strength of the major groups in the extremities is 5/5. REFLEXES: Deep tendon reflexes normal and symmetrical. No pathological reflexes. CEREBELLAR/COORDINATION: Finger to nose and heel to stone are normal bilaterally. 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 Ativan for seizure breakthrough Follow up her doctors, including neurologist on discharge This medical document was created using an electronic medical record system with [employer] dictation system. Although this document has been carefully reviewed, there may still be some phonetic and typographical errors. These areas are purely typographical due to imperfections of the software programs, and do not reflect any compromise in the patient's medical care. Prognosis poor Plan discussed with: Patient, Other Total Time (mins): 35 JAMEL GARCIA MD Jan 29, 2025 20:58
[2025-01-29] MEDS ORDERED: LORazepam 2MG/ML-1ML VIAL IV PRN (21:30)
--- NOTE | 2025-01-30 00:32 | DVHEEG2 ---
Neurology EEG Procedural Note Procedural Note EXAM DATE: 01/29/2025 REFERRING DOCTOR: Dr. Garcia TECHNIQUE: Eighteen channels of EEG, 2 channels of EOG, and 1 channel of EKG were recorded using the International 10/20 system. CLINICAL DATA: The patient was referred for an EEG evaluation for the evidence of seizure disorder. MEDICATIONS: See the chart BACKGROUND ACTIVITY: While the patient was awake, the background activity consisted of well regulated 10 Hz rhythmic waveforms, symmetrically distributed over both posterior quadrants and was reactive to eye opening. ACTIVATION: Hyperventilation: Not done Photic Stimulation: Not done Sleep: Stage I and II IMPRESSION: This is a normal EEG. No focal, lateralized, or epileptiform features are noted. If clinically indicated to rule out a seizure disorder, recommend repeat EEG with sleep deprivation. The EKG channel showed a regular heart rate of 60 per minute [place] [address]. JAMEL GARCIA MD Jan 30, 2025 00:32
[2025-01-30 05:00] VITALS: BP 102/51; PULSE 68; RESP 18; TEMP 97.9; O2SAT 99
--- NOTE | 2025-01-30 07:24 | DVHPN2 ---
Progress Note - Dictate Date Seen: Jan 30, 2025 Medical Necessity Reason Pt with a Central, PICC or Fol: No vital signs Vital Sign Date Time Temp Pulse Resp B/P (MAP) Pulse Ox O2 Delivery O2 Flow Rate FiO2 01/30/25 05:00 97.9 68 18 102/51 (68) 99 97.9 01/29/25 20:30 Room Air* 0 21 Total Intake and Output 01/29/25 01/29/25 01/30/25 15:00 23:00 07:00 Intake Total 100 ml 900 ml 980 ml Balance 100 ml 900 ml 980 ml medications Current Medications Medications Dose Ordered Sig/Raul Route Start Time Stop Time Status Last Admin Dose Admin Acetaminophen/ Hydrocodone Bitart 1 tab Q4HP PRN PO 01/27/25 13:30 Ondansetron HCl 4 mg Q4HP PRN IV 01/27/25 13:30 01/29/25 06:38 4 MG Acetaminophen 650 mg Q6HP PRN PO 01/27/25 13:30 Nitroglycerin 0.4 mg Q5MINP PRN SL 01/27/25 13:30 Morphine Sulfate 2 mg Q30M PRN IV 01/27/25 13:30 Levetiracetam 100 ml @ 400 mls/hr BID IV 01/27/25 22:00 01/29/25 22:12 400 MLS/HR Medroxyprogesterone Acetate 10 mg DAILY PO 01/29/25 10:00 01/29/25 09:42 10 MG Lorazepam 2 mg Q20MP PRN IV 01/29/25 21:30 objective General Appearance: alert, no distress HEENT: EOMI, PERRLA, normal external inspect of ears, no icterus, no nasal drainage Neck: no carotid bruit, no jugular venous distention (JVD), no lymphadenopathy Chest: normal thorax Respiratory: clear to auscultation, normal air movement Cardiovascular: regular rate and rhythm, no diastolic murmur, no jugular venous distention (JVD), no rub, no systolic murmur Abdominal: soft, no hepatomegaly, no mass, no splenomegaly, no tenderness Genitourinary: grossly normal external Musculoskeletal: no joint tenderness, no swelling Extremities: normal pulses, no calf tenderness, no clubbing, no cyanosis, no edema Skin: no bruising, no jaundice, no rash Neurological: alert, No focal deficit laboratory and microbiology Laboratory Tests 01/28/25 05:15 Test 01/28/25 05:15 Range/Units Serum Glucose 82 74-106 mg/dL Problem List 1. Breakthrough seizure Monitor, seizure precautions, antiepileptics, neurology consult 2. Obesity Monitor, cardiac diet 3. Epilepsy Monitor, antiepileptics, neurology consult 4. Menorrhagia Monitor, WATER QUALITY MANAGER consult, start Provera Assessment/Plan Subjective: Patient is awake and alert. Objective: Patient was admitted on 01/27/2025 for breakthrough seizure. Patient was seen by neurology. Patient was started on IV Keppra. EEG had no acute findings. Neurology is recommending patient follows up with her neurologist outpatient. Patient will need to have serial breakthrough seizures prior to discharge. Plan: Continue current treatment. Possible discharge planning for tomorrow. Plan discussed with: Patient, Other ALE BIANCHI NP Jan 30, 2025 07:24
[2025-01-30 09:00] VITALS: BP 102/66; PULSE 74; RESP 20; TEMP 98.6; O2SAT 100
[2025-01-30 13:20] VITALS: BP 103/53; PULSE 62; RESP 18; TEMP 98.6; O2SAT 100
[2025-01-30 17:00] VITALS: BP 104/53; PULSE 61; RESP 18; TEMP 98.5; O2SAT 98
[2025-01-30 20:00] VITALS: PULSE 66; PULSE 86; RESP 18; O2SAT 99
[2025-01-30 21:00] VITALS: BP 112/55; PULSE 66; RESP 18; TEMP 98.9; O2SAT 99
[2025-01-31] VITALS (7 sets, daily range): BP systolic 96–130; BP diastolic 64–73; PULSE 57–75; RESP 17–20; TEMP 98.3–98.5; O2SAT 96–100
[2025-01-31] MEDS ORDERED: LEVE100012 PO (18:44)
--- NOTE | 2025-01-31 18:47 | DVHDS2 ---
Discharge Summary Date of Admission Jan 27, 2025 at 13:21 Date of Discharge: Jan 29, 2025 Admitting Diagnosis Breakthrough seizures Labs/Diagnostic Data: Laboratory Results Test 01/28/25 18:30 01/28/25 05:15 01/27/25 11:00 POC Glucose 114 mg/dl (70-106) White Blood Count 7.3 10^3/uL (4.4-10.8) Red Blood Count 3.94 10^6/uL (4.0-5.20) Hemoglobin 10.0 g/dL (12.2-16.2) Hematocrit 30.9 % (36.0-46.0) Mean Corpuscular Volume 78.6 fL (80.0-100.0) Mean Corpuscular Hemoglobin 25.5 pg (28.0-32.0) Mean Corpuscular Hemoglobin Concent 32.5 g/dL (32.0-36.0) Red Cell Distribution Width 17.3 % (11.8-14.3) Platelet Count 390 10^3/uL (140-450) Mean Platelet Volume 7.8 fL (6.9-10.8) Neutrophils (%) (Auto) 62.3 % (37.0-80.0) Lymphocytes (%) (Auto) 29.3 % (10.0-50.0) Monocytes (%) (Auto) 6.0 % (0.0-12.0) Eosinophils (%) (Auto) 2.0 % (0.0-7.0) Basophils (%) (Auto) 0.4 % (0.0-2.0) Neutrophils # (Auto) 4.6 10 ^3/uL (1.6-8.6) Lymphocytes # (Auto) 2.1 10 ^3/uL (0.4-5.4) Monocytes # (Auto) 0.4 10 ^3/uL (0-1.3) Eosinophils # (Auto) 0.1 10 ^3/uL (0-0.8) Basophils # (Auto) 0 10 ^3/uL (0-0.2) Nucleated Red Blood Cells 0.1 % Sodium Level 137 mmol/L (136-145) Potassium Level 4.0 mmol/L (3.5-5.1) Chloride Level 104 mmol/L (98-107) Carbon Dioxide Level 23 mmol/L (20-31) Anion Gap 10 (5-15) Blood Urea Nitrogen 10 mg/dL (9-23) Creatinine 0.79 mg/dL (0.550-1.02) Glomerular Filtration Rate Calc 108 mL/min (>90) BUN/Creatinine Ratio 12.7 (10.0-20.0) Serum Glucose 82 mg/dL (74-106) Calcium Level 9.6 mg/dL (8.7-10.4) Total Bilirubin 0.4 mg/dL (0.2-1.0) Aspartate Amino Transferase (AST) 19 U/L (13-40) Alanine Aminotransferase (ALT) 14 U/L (7-40) Alkaline Phosphatase 57 U/L (46-116) Total Protein 7.6 g/dL (5.7-8.2) Albumin 4.3 g/dL (3.2-4.8) Urine Color Colorless (Yellow) Urine Clarity Clear (Clear) Urine pH 6.0 (5.0-9.0) Urine Specific [place] 1.002 (1.001-1.035) Urine Protein Negative (Negative) Urine Ketones Negative (Negative) Urine Blood 2+ /uL (Negative) Urine Nitrite Negative (Negative) Urine Bilirubin Negative (Negative) Urine Urobilinogen Normal mg/dL (Negative) Urine Leukocyte Esterase Negative /uL (Negative) Urine RBC None seen /hpf (0 - 4) Urine Microscopic WBC /HPF (0-5) Urine Squamous Epithelial Cells Few /hpf (<5) Urine Bacteria None seen /hpf (None Seen) Urine Glucose Normal mg/dL (Normal) Other Laboratory Tests 01/28/25 05:15 Brief Hx & Hospital Course: 44-year-old female admitted for breakthrough seizures. Patient had EEG done which was negative. Patient was placed on Keppra 1000 [address]i.d[address] by neurologist Dr. Car. Patient was also found to have anemia. Patient will be sent home on Keppra and Provera for menorrhagia is to follow up with PCP within one week of discharge Condition at Discharge: Fair Final Diagnosis/Problems List 1. Breakthrough seizure 2. Obesity 3. Epilepsy 4. microcyticanemia Discharge Disposition: Home Discharge Instruct/Medications Diet: Cardiac 2g Na,low cholest Activity: No Restrictions, As Tolerated Follow Up/Referral: pcp 1 week neurology within 2 weeks Discharge Statement: "Patient was advised to return to the ER or call 911 if any headaches, dizziness, shortness of breath, chest pain, abdominal pain, bleeding, fevers, or worsening of medical condition. Patient was counseled about treatment plan, medications, possible side effects, patientverbalized understanding. All questions were answered to the best of my ability. This discharge took greater then 30 minutes in planning, reviewing documentation, counseling the patient, and discussing with other team members." ASSESSMENT ASSESSMENT Assessment 1. Breakthrough seizure 2. Obesity 3. Epilepsy 4. microcyticanemia GREGOR MORRISSEY AUTOMATIC OPERATOR Jan 31, 2025 18:47
== END 2025-01-31 16:12 | disposition home or self-care (01) | DRG 53 ==
LOC: ER 10:50 → EDBD 10:50 → OVERFLOW 13:21 → TELE-WESTW 21:00
PROVIDERS: ADMIT Nurse Practitioner; ATTEND Nurse Practitioner
DX: G40.409 Other generalized epilepsy and epileptic syndromes, not intractable, without status epilepticus (principal); D64.9 Anemia, unspecified; N92.0 Excessive and frequent menstruation with regular cycle; E11.9 Type 2 diabetes mellitus without complications; E66.9 Obesity, unspecified; Z83.3 Family history of diabetes mellitus; Z79.899 Other long term (current) drug therapy; Z68.34 Body mass index [BMI] 34.0-34.9, adult
CPT/HCPCS: 36415; 80048; 80053; 81001; 82962; 85025; 95819; 96365; 96375; 99291; G0378; J2405; J2470

== ENCOUNTER 2025-02-01 19:46 | Emergency (ER) | payer MEDICAID ==
[~2025-02-01] VITALS: Ht 157.5 cm; Wt 90.9 kg
[~2025-02-01 19:46] MED LIST changes: +DIAZ5SPR NAS; -IBU600T PO; +LEVE100012 PO; +MEDR5TAB28 PO; -NEOMOIN6 EX
--- NOTE | 2025-02-01 20:02 | ED.PDOC ---
History of Present Illness HPI Comments 24-year-old female who came via EMS for syncope. Patient was just discharged here yesterday and was diagnosed with 1. Breakthrough seizure, 2. Obesity, 3. Epilepsy, 4. microcytic anemia. Per EMS, patient was at home when she had a witnessed syncopal attack by family members. States patient felt dizzy and li ghtheaded before passing out. Patient currently complaining of chest discomfort. Denies any head trauma. Denies any seizure-like activity. Blood sugar on scene was 99, with normotensive vital signs. Chief Complaint: Syncope Time Seen by MD: 20:02 Primary Care Provider: UNKNOWN Reviewed Notes: Credit Union Examiner Notes Allergies: Coded Allergies: NO KNOWN ALLERGIES (Unverified , 01/27/25) Home Meds Active Scripts Levetiracetam (Keppra) 1,000 Mg Tab, 1 TAB PO BID, #60 TAB 5 Refills Prov:GREGOR MORRISSEY INTERIOR BLOCK WIRER 01/31/25 Medroxyprogesterone Acetate (PROVERA) 5 Mg Tab, 2 TAB PO DAILY for 10 Days, #20 TAB 11 Refills Prov:ALE BIANCHI PROCESSING TECHNOLOGIST 01/29/25 Reported Medications Diazepam (Anticonvulsant) (Valtoco) 5 Mg/0.1 Ml Spr, 1 SPRAY TIN PRN 01/28/25 Discontinued Scripts Medroxyprogesterone Acetate (PROVERA) 5 Mg Tab, 2 TAB PO DAILY for 10 Days, #20 TAB Prov:AVEL LARSON BSN 01/28/25 Ibuprofen Micronized (MOTRIN TABLET) 600 Mg Tb, 600 MG PO TID PRN for 10 Days, #30 TAB *Black box warning-NSAIDS can increase risk of TX & hypertension, GI irritation, ulceration, bleed, perferation. Do not use post cardiac surgery. Use short duration/lowest effective dose. Prov:IKE CAMPBELL MD 01/07/22 Beelfqxz-Ycokletstq-Cdkzxbfuv- (Neosporin + Pain Relief) Relf Max Oin, 1 MAX EX DAILY for 7 Days, #5 OIN Prov:IKE CAMPBELL MD 01/07/22 Information Source: Patient Mode of Arrival: EMS Severity: Moderate Timing: Minutes Duration: Minutes Prehospital treatment: Oxygen Past Medical History PAST MEDICAL HISTORY: Anemia, Seizures Surgical History: Denies all surgeries Surgical History (Other): Blood transfusion TAKER AWAY History: No Pertinent TAKER AWAY History Family History Family History: Unknown Social History Smoker: Non-Smoker Alcohol: Denies ETOH Use Drugs: Denies Drug Use Lives In: Home Constitutional: denies: chills, diaphoresis, fatigue, fever, malaise, sweats, weakness, others EENTM: denies: blurred vision, double vision, ear bleeding, ear discharge, ear drainage, ear pain, ear ringing, eye pain, eye redness, hearing loss, mouth pain, mouth swelling, nasal discharge, nose bleeding, nose congestion, nose pain, photophobia, tearing, throat pain, throat swelling, voice changes, others Respiratory: denies: cough, hemoptysis, orthopnea, SOB at rest, shortness of breath, SOB with excertion, stridor, wheezing, others Cardiovascular: reports: chest pain; denies: dizzy spells, diaphoresis, Dyspnea on exertion, edema, irregular heart beat, left arm pain, lightheadedness, palpitations, PND, syncope, others Gastrointestinal: denies: abdomen distended, abdominal pain, blood streaked bowels, constipated, diarrhea, dysphagia, difficulty swallowing, hematemesis, melena, nausea, poor appetite, poor fluid intake, rectal bleeding, rectal pain, vomiting, others Genitourinary: denies: abnormal vagina bleeding, burning, dyspareunia, dysuria, flank pain, frequency, hematuria, incontinence, pain, , vagina discharge, urgency, others Neurological: reports: dizziness, fainting; denies: headache, left sided numbness, left sided weakness, numbness, paresthesia, pre-existing deficit, right sided numbness, right sided weakness, seizure, speech problems, tingling, tremors, weakness, others Musculoskeletal: denies: back pain, gout, joint pain, joint swelling, muscle pain, muscle stiffness, neck pain, others Integumetry: denies: bruises, change in color, change in hair/nails, dryness, laceration, lesions, lumps, rash, wounds, others Allergic/Immunocompromised: denies: Difficulty Healing, Frequent Infections, Hives, Itching, others Hematologic/Lymphatic: denies: anemia, blood clots, easy bleeding, easy bruising, swollen glands, others Endocrine: denies: excessive hunger, excessive sweating, excessive thirst, excessive urination, flushing, intolerance to cold, intolerance to heat, unexplained weight gain, unexplained weight loss, others Psychiatric: denies: anxiety, bipolar disorder, depression, hopeless, panic disorder, schizophrenia, sleepless, suicidal, others Physical Exam General Appearance: No Apparent Distress, Normal HEENT: Normal ENT Inspection, Pharynx Normal, TMs Normal Neck: Full Range of Motion, Non-Tender, Normal, Normal Inspection Respiratory: Chest Non-Tender, Lungs Clear, No Accessory Muscle Use, No Respiratory Distress, Normal Breath Sounds Cardiovascular: No Edema, No JVD, No Murmur, No Gallop, Normal Peripheral Pulses, Regular Rate/Rhythm Breast Exam: Deferred Gastrointestinal: No Organomegaly, Non Tender, No Pulsatile Mass, Normal Bowel Sounds, Soft Genitalia: Deferred Pelvic: Deferred Rectal: Deferred Extremities: No calf tenderness, Normal capillary refill, Normal inspection, Normal range of motion, Non-tender, No pedal edema Musculoskeletal : Apperance: Normal Neurologic: Alert, lab analyst II-XII nml as Tested, No Motor Deficits, Normal Affect, Normal Mood, No Sensory Deficits Cerebellar Function: Normal Reflexes: Normal Skin: Dry, Normal Color, Warm Lymphatic: No Adenopathy Was a procedure done? Was a procedure done?: No Differential Dx Considerations may include: Anemia, electrolyte imbalance, seizure, syncope X-Ray, Labs, Meds, VS Vital Signs Date Time Temp Pulse Resp B/P (MAP) Pulse Ox O2 Delivery O2 Flow Rate FiO2 02/01/25 22:15 67 13 113/62 (79) 100 02/01/25 20:22 60 16 100 Room Air* 0 21 02/01/25 20:17 98.2 60 16 119/64 (82) 100 98.2 02/01/25 19:51 70 02/01/25 19:50 98.3 69 15 129/81 (97) 99 98.3 Lab Test 02/01/25 20:49 02/01/25 20:12 Range/Units Urine Color Light-yellow Yellow Urine Clarity Clear Clear Urine pH 6.5 5.0-9.0 Urine Specific [place] 1.024 1.001-1.035 Urine Protein Negative Negative Urine Ketones Negative Negative Urine Blood 1+ H Negative /uL Urine Nitrite Negative Negative Urine Bilirubin Negative Negative Urine Urobilinogen Normal Negative mg/dL Urine Leukocyte Esterase Negative Negative /uL Urine RBC 1 0 - 4 /hpf Urine Microscopic WBC 1 0-5 /HPF Urine Squamous Epithelial Cells Few <5 /hpf Urine Bacteria None seen None Seen /hpf Urine Mucus Few None Seen Urine Glucose Normal Normal mg/dL White Blood Count 7.9 4.4-10.8 10^3/uL Red Blood Count 4.48 4.0-5.20 10^6/uL Hemoglobin 11.1 L 12.2-16.2 g/dL Hematocrit 35.1 #L 36.0-46.0 % Mean Corpuscular Volume 78.4 L 80.0-100.0 fL Mean Corpuscular Hemoglobin 24.8 L 28.0-32.0 pg Mean Corpuscular Hemoglobin Concent 31.7 L 32.0-36.0 g/dL Red Cell Distribution Width 17.3 H 11.8-14.3 % Platelet Count 358 140-450 10^3/uL Mean Platelet Volume 7.5 6.9-10.8 fL Neutrophils (%) (Auto) 63.7 37.0-80.0 % Lymphocytes (%) (Auto) 27.0 10.0-50.0 % Monocytes (%) (Auto) 7.3 0.0-12.0 % Eosinophils (%) (Auto) 1.3 0.0-7.0 % Basophils (%) (Auto) 0.7 0.0-2.0 % Neutrophils # (Auto) 5.0 1.6-8.6 10 ^3/uL Lymphocytes # (Auto) 2.1 0.4-5.4 10 ^3/uL Monocytes # (Auto) 0.6 0-1.3 10 ^3/uL Eosinophils # (Auto) 0.1 0-0.8 10 ^3/uL Basophils # (Auto) 0.1 0-0.2 10 ^3/uL Nucleated Red Blood Cells 0.1 % Sodium Level 139 136-145 mmol/L Potassium Level 4.3 3.5-5.1 mmol/L Chloride Level 107 98-107 mmol/L Carbon Dioxide Level 26 20-31 mmol/L Anion Gap 6 5-15 Blood Urea Nitrogen 11 9-23 mg/dL Creatinine 0.92 0.550-1.02 mg/dL Glomerular Filtration Rate Calc 90 >90 mL/min BUN/Creatinine Ratio 12.0 10.0-20.0 Serum Glucose 85 74-106 mg/dL Calcium Level 10.1 8.7-10.4 mg/dL Magnesium Level 2.1 1.6-2.6 mg/dL Total Bilirubin 0.2 0.2-1.0 mg/dL Aspartate Amino Transferase (AST) 24 13-40 U/L Alanine Aminotransferase (ALT) 16 7-40 U/L Alkaline Phosphatase 63 46-116 U/L Total Protein 8.4 H 5.7-8.2 g/dL Albumin 4.8 3.2-4.8 g/dL Current Medications Medications (Trade) Dose Ordered Sig/Raul Route Start Time Stop Time Status Last Admin Sodium Chloride 1,000 ml @ 1,000 mls/hr Q1H ONCE IVB 02/01/25 20:00 02/01/25 20:59 DC 02/01/25 20:20 Time of 1ST Reevaluation: 19:58 Reevaluation 1ST: Unchanged Patient Education/Counseling: Diagnosis, Treatment Family Education/Counseling: No Family Present Departure 1 Departure Time of Disposition: 21:30 Impression: Primary Impression: Syncope and collapse Disposition: 01 HOME / SELF CARE / HOMELESS Condition: Stable Discharged With: Self Critical Care Note Critical Care Time?: No Stability Stability form required: No Heart Score Heart Score: Heart Score Response (Comments) Value History N/A 0 EKG N/A 0 Age N/A 0 Risk Factors N/A 0 Troponin N/A 0 Total 0 I personally scribed for MILEY CAMPBELL MD ([email or web address]) on 02/01/25 at 20:02. Electronically submitted by Brad Wong ([email or web address]). MILEY CAMPBELL MD Feb 01, 2025 20:02
[2025-02-01 20:17] VITALS: TEMP 98.2
[2025-02-01] MEDS: SODIUM CHLORIDE 0.9% 1,000 ML IVB ONE (20:20)
[2025-02-01 20:22] VITALS: PULSE 60; RESP 16; O2SAT 100
[2025-02-01 20:23] LABS: Basophils # (auto) 0.1 10 ^3/uL (0-0.2); Eosinophils # (auto) 0.1 10 ^3/uL (0-0.8); Monocytes # (auto) 0.6 10 ^3/uL (0-1.3); Monocytes % (auto) 7.3 % (0.0-12.0); Nucleated Red Blood Cells % 0.1 %; White Blood Cell 7.9 10^3/uL (4.4-10.8)
[2025-02-01 20:24] LABS: Basophils % (auto) 0.7 % (0.0-2.0); Eosinophils % (auto) 1.3 % (0.0-7.0); Hematocrit 35.1 % (36.0-46.0); Hemoglobin 11.1 g/dL (12.2-16.2); Lymphocytes # (auto) 2.1 10 ^3/uL (0.4-5.4); Mean Corpuscular Hemoglobin 24.8 pg (28.0-32.0); Mean Corpuscular Hgb Conc. 31.7 g/dL (32.0-36.0); Mean Corpuscular Volume 78.4 fL (80.0-100.0); Neutrophils % (auto) 63.7 % (37.0-80.0); Platelet Count (auto) 358 10^3/uL (140-450); Red Blood Cells 4.48 10^6/uL (4.0-5.20); Red Cell Distribution Width 17.3 % (11.8-14.3)
[2025-02-01 20:41] LABS: Alanine Aminotransferase 16 U/L (7-40); Albumin 4.8 g/dL (3.2-4.8); Alkaline Phosphatase 63 U/L (46-116); Anion Gap 6 (5-15); Aspartate Aminotransferase 24 U/L (13-40); Blood Urea Nitrogen 11 mg/dL (9-23); Calcium 10.1 mg/dL (8.7-10.4); Carbon Dioxide 26 mmol/L (20-31); Glucose 85 mg/dL (74-106); Magnesium 2.1 mg/dL (1.6-2.6); Potassium 4.3 mmol/L (3.5-5.1); Sodium 139 mmol/L (136-145)
[2025-02-01 21:01] LABS: Urine Bacteria None Seen /hpf (None Seen)
[2025-02-01 21:26] LABS: Bilirubin, Total 0.2 mg/dL (0.2-1.0); Chloride 107 mmol/L (98-107); Total Protein 8.4 g/dL (5.7-8.2)
[2025-02-01 21:31] LABS: Urine Blood 1+ /uL (Negative); Urine Clarity Clear (Clear); Urine Color Light-Yellow (Yellow); Urine Mucus FEW (None Seen); Urine Protein, UAD Negative (Negative); Urine Specific Gravity 1.024 (1.001-1.035); Urine Squamous Epithelial Cell FEW /hpf (<5); Urine Urobilinogen Normal (Negative); Urine WBC 1 /HPF (0-5); Urine pH 6.5 (5.0-9.0)
[2025-02-01 22:15] VITALS: BP 113/62; PULSE 67; RESP 13; O2SAT 100
--- NOTE | 2025-02-02 06:17 | ECG ---
[facility] Test Date: 2025-02-01 Test Time: 19:51:48 Pat Name: LENNY POLLACK Department: ED Room: Gender: F Epic Willow Specialist: : 2000 Requested By: MILEY CAMPBELL Order Number: [id number] Reading MD: Lalito Block Measurements Intervals Jay Rate: 70 P: 55 CA: 160 QRS: 85 QRSD: 85 T: 46 QT: 384 QTc: 415 Interpretive Statements Sinus rhythm Electronically Signed On 02-02-2025 20:36:30 PDT by Lalito Block Please click the below link to view image of tracing.
== END 2025-02-01 22:15 | disposition home or self-care (01) ==
LOC: ER 19:46 → EDBD 19:46 → ER 22:15
DX: R55 Syncope and collapse (principal); G40.909 Epilepsy, unspecified, not intractable, without status epilepticus; Z79.899 Other long term (current) drug therapy
CPT/HCPCS: 36415; 80053; 81001; 83735; 85025; 93005; 96360; 99284; J7030

== ENCOUNTER 2025-03-07 11:58 | Inpatient (IN) | payer MEDICAID ==
[~2025-03-07] VITALS: Ht 157.5 cm; Wt 94.8 kg
--- NOTE | 2025-03-07 12:33 | ED.PDOC ---
History of Present Illness HPI Comments This is a 24-year-old female who comes in with chief complaint of seizure. The patient was at [facility] and had three seizures according to bystanders. The patient had a seizure lasting approximately 1 minute and she was helped to the ground by bystanders. She did not sustain any trauma. Follow ing the seizure, the patient had 30 seconds of being postictal and then had another two seizures lasting approximately 1 minute each. 911 was called and the patient was transported to our facility. Initially the patient was complaining of a headache but she states now it has resolved. She denies any nausea or vomiting. EN route, the patient had an Accu-Chek of 64 and was given 1 mg of glucagon IV push. Currently the patient was on Keppra. She was actually seen at [facility] yesterday and was seen and then discharged. She states that she is compliant with her medications and takes 1000 mg twice a day. Chief Complaint: Seizure Time Seen by MD: 12:14 Primary Care Provider: unknown Reviewed Notes: Nurses Notes, Custodial Maintenance Worker Notes, Medications, Allergies (No allergies to medications) Allergies: Coded Allergies: NO KNOWN ALLERGIES (Unverified , 01/27/25) Home Meds Active Scripts Levetiracetam (Keppra) 1,000 Mg Tab, 1 TAB PO BID, #60 TAB 5 Refills Prov:GREGOR MORRISSEY CHAUFFEUR MOTORBUS 01/31/25 Medroxyprogesterone Acetate (PROVERA) 5 Mg Tab, 2 TAB PO DAILY for 10 Days, #20 TAB 11 Refills Prov:ALE BIANCHI PLAIN GOODS HEMMER 01/29/25 Reported Medications Diazepam (Anticonvulsant) (Valtoco) 5 Mg/0.1 Ml Spr, 1 SPRAY TIN PRN 01/28/25 Information Source: Patient, Emergency Med Personnel Mode of Arrival: EMS Severity: Moderate Timing: Minutes Duration: Intermittent Prehospital treatment: Accucheck (64), Civil Rights Representative, IVF Associated signs and symptoms Seizure activity with a headache Past Medical History PAST MEDICAL HISTORY: Anemia, Seizures Surgical History: Denies all surgeries PAVING BLOCK CUTTER History: No Pertinent PAVING BLOCK CUTTER History Family History Family History: Family hx of DM, Family hx of HTN Social History Smoker: Non-Smoker Alcohol: Denies ETOH Use Drugs: Denies Drug Use Lives In: Home Constitutional: denies: chills, diaphoresis, fatigue, fever, malaise, sweats, weakness, others EENTM: denies: blurred vision, double vision, ear bleeding, ear discharge, ear drainage, ear pain, ear ringing, eye pain, eye redness, hearing loss, mouth pain, mouth swelling, nasal discharge, nose bleeding, nose congestion, nose pain, photophobia, tearing, throat pain, throat swelling, voice changes, others Respiratory: denies: cough, hemoptysis, orthopnea, SOB at rest, shortness of breath, SOB with excertion, stridor, wheezing, others Cardiovascular: denies: chest pain, dizzy spells, diaphoresis, Dyspnea on exertion, edema, irregular heart beat, left arm pain, lightheadedness, palpitations, PND, syncope, others Gastrointestinal: denies: abdomen distended, abdominal pain, blood streaked bowels, constipated, diarrhea, dysphagia, difficulty swallowing, hematemesis, melena, nausea, poor appetite, poor fluid intake, rectal bleeding, rectal pain, vomiting, others Genitourinary: denies: abnormal vagina bleeding, burning, dyspareunia, dysuria, flank pain, frequency, hematuria, incontinence, pain, , vagina discharge, urgency, others Neurological: reports: seizure; denies: dizziness, fainting, headache, left sided numbness, left sided weakness, numbness, paresthesia, pre-existing deficit, right sided numbness, right sided weakness, speech problems, tingling, tremors, weakness, others Musculoskeletal: denies: back pain, gout, joint pain, joint swelling, muscle pain, muscle stiffness, neck pain, others Integumetry: denies: bruises, change in color, change in hair/nails, dryness, laceration, lesions, lumps, rash, wounds, others Allergic/Immunocompromised: denies: Difficulty Healing, Frequent Infections, Hives, Itching, others Hematologic/Lymphatic: denies: anemia, blood clots, easy bleeding, easy bruising, swollen glands, others Endocrine: denies: excessive hunger, excessive sweating, excessive thirst, excessive urination, flushing, intolerance to cold, intolerance to heat, unexplained weight gain, unexplained weight loss, others Psychiatric: denies: anxiety, bipolar disorder, depression, hopeless, panic disorder, schizophrenia, sleepless, suicidal, others Physical Exam General Appearance: Mild Distress HEENT: Normal ENT Inspection, Pharynx Normal, TMs Normal Neck: Full Range of Motion, Non-Tender, Normal, Normal Inspection Respiratory: Chest Non-Tender, Lungs Clear, No Accessory Muscle Use, No Respiratory Distress, Normal Breath Sounds Cardiovascular: No Edema, No JVD, No Murmur, No Gallop, Normal Peripheral Pulses, Regular Rate/Rhythm Breast Exam: Deferred Gastrointestinal: No Organomegaly, Non Tender, No Pulsatile Mass, Normal Bowel Sounds, Soft Genitalia: Deferred Pelvic: Deferred Rectal: Deferred Extremities: No calf tenderness, Normal capillary refill, Normal inspection, Normal range of motion, Non-tender, No pedal edema Musculoskeletal : Apperance: Normal Neurologic: Alert, sales executive II-XII nml as Tested, Motor Weakness, Normal Affect, Normal Mood, No Sensory Deficits Cerebellar Function: Normal Reflexes: Normal Skin: Dry, Normal Color, Warm Lymphatic: No Adenopathy Was a procedure done? Was a procedure done?: No Differential Dx Considerations may include: Breakthrough seizure X-Ray, Labs, Meds, VS Vital Signs Date Time Temp Pulse Resp B/P (MAP) Pulse Ox O2 Delivery O2 Flow Rate FiO2 03/07/25 15:00 98.0 58 18 104/59 (74) 99 98.0 03/07/25 12:08 98.1 62 18 127/91 (103) 99 98.1 Lab Test 03/07/25 14:54 03/07/25 13:36 Range/Units POC Glucose 63 L 70-106 mg/dl White Blood Count 8.1 4.4-10.8 10^3/uL Red Blood Count 4.13 4.0-5.20 10^6/uL Hemoglobin 10.5 L 12.2-16.2 g/dL Hematocrit 33.7 L 36.0-46.0 % Mean Corpuscular Volume 81.7 80.0-100.0 fL Mean Corpuscular Hemoglobin 25.5 L 28.0-32.0 pg Mean Corpuscular Hemoglobin Concent 31.3 L 32.0-36.0 g/dL Red Cell Distribution Width 24.5 H 11.8-14.3 % Platelet Count 387 140-450 10^3/uL Mean Platelet Volume 7.6 6.9-10.8 fL Neutrophils (%) (Auto) 77.8 37.0-80.0 % Lymphocytes (%) (Auto) 15.0 10.0-50.0 % Monocytes (%) (Auto) 6.0 0.0-12.0 % Eosinophils (%) (Auto) 0.8 0.0-7.0 % Basophils (%) (Auto) 0.4 0.0-2.0 % Neutrophils # (Auto) 6.3 1.6-8.6 10 ^3/uL Lymphocytes # (Auto) 1.2 0.4-5.4 10 ^3/uL Monocytes # (Auto) 0.5 0-1.3 10 ^3/uL Eosinophils # (Auto) 0.1 0-0.8 10 ^3/uL Basophils # (Auto) 0 0-0.2 10 ^3/uL Nucleated Red Blood Cells 0.1 % Sodium Level 138 136-145 mmol/L Potassium Level 4.0 3.5-5.1 mmol/L Chloride Level 111 H 98-107 mmol/L Carbon Dioxide Level 20 20-31 mmol/L Anion Gap 7 5-15 Blood Urea Nitrogen 8 L 9-23 mg/dL Creatinine 0.93 0.550-1.02 mg/dL Glomerular Filtration Rate Calc 89 >90 mL/min BUN/Creatinine Ratio 8.6 L 10.0-20.0 Serum Glucose 78 74-106 mg/dL Calcium Level 9.6 8.7-10.4 mg/dL Current Medications Medications (Trade) Dose Ordered Sig/Raul Route Start Time Stop Time Status Last Admin Lorazepam (Ativan Inj) 1 mg ONCE ONCE IV 03/07/25 12:30 03/07/25 12:31 DC 03/07/25 15:00 Levetiracetam 100 ml @ 400 mls/hr ONCE ONCE IV 03/07/25 12:30 03/07/25 12:44 DC 03/07/25 15:09 IV Hep-Lock was established The patient was given Ativan 1 mg IV push Seizure precautions were placed on the patient The patient had another seizure here in the emergency department's despite receiving Ativan as well as Keppra The patient's CBC and chemistry panel are within normal limits At this time, the patient was being admitted The patient's Accu-Chek was repeated it was 63 The patient was being given one amp of D50 A neurology consult will be obtained. Time of 1ST Reevaluation: 12:32 Reevaluation 1ST: Improved Patient Education/Counseling: Diagnosis, Treatment, Prognosis Family Education/Counseling: No Family Present Departure 1 Departure Time of Disposition: 15:41 Impression: Primary Impression: Status epilepticus Disposition: 09 ADMITTED INPATIENT Admit to: Tele Condition: Fair Critical Care Note Critical Care Time?: Yes (35 min-critical care time only) Stability Stability form required: Yes Unstable for transfer: Telemetry monitoring (Telemetry monitoring required), ED Physician Assesment (Clinical assesment) Heart Score Heart Score: Heart Score Response (Comments) Value History N/A 0 EKG N/A 0 Age N/A 0 Risk Factors N/A 0 Troponin N/A 0 Total 0 ELIZA LEMON MD March 07, 2025 12:33
[2025-03-07 13:52] LABS: Basophils # (auto) 0 10 ^3/uL (0-0.2); Basophils % (auto) 0.4 % (0.0-2.0); Hematocrit 33.7 % (36.0-46.0); Monocytes # (auto) 0.5 10 ^3/uL (0-1.3); Neutrophils # (auto) 6.3 10 ^3/uL (1.6-8.6); Platelet Count (auto) 387 10^3/uL (140-450); White Blood Cell 8.1 10^3/uL (4.4-10.8)
[2025-03-07 13:54] LABS: Eosinophils # (auto) 0.1 10 ^3/uL (0-0.8); Eosinophils % (auto) 0.8 % (0.0-7.0); Hemoglobin 10.5 g/dL (12.2-16.2); Lymphocytes # (auto) 1.2 10 ^3/uL (0.4-5.4); Mean Corpuscular Hemoglobin 25.5 pg (28.0-32.0); Mean Corpuscular Hgb Conc. 31.3 g/dL (32.0-36.0); Mean Corpuscular Volume 81.7 fL (80.0-100.0); Neutrophils % (auto) 77.8 % (37.0-80.0); Nucleated Red Blood Cells % 0.1 %; Red Blood Cells 4.13 10^6/uL (4.0-5.20); Red Cell Distribution Width 24.5 % (11.8-14.3)
[2025-03-07 14:00] LABS: Sodium 138 mmol/L (136-145)
[2025-03-07 14:01] LABS: Anion Gap 7 (5-15); Calcium 9.6 mg/dL (8.7-10.4); Carbon Dioxide 20 mmol/L (20-31)
[2025-03-07 14:06] LABS: BUN/Creatinine Ratio 8.6 (10.0-20.0); Blood Urea Nitrogen 8 mg/dL (9-23); Chloride 111 mmol/L (98-107); Glucose 78 mg/dL (74-106)
[2025-03-07] MEDS: LORazepam 2MG/ML-1ML VIAL IV ONE (15:00)
[2025-03-07] MEDS: levETIRAcetam 1000 mg/100ml 100 ML IV ONE (15:09)
[2025-03-07] MEDS: DEXTROSE (50%) 50ML SYRG IV ONE (15:16)
--- NOTE | 2025-03-07 17:57 | DVHHP2 ---
Admitting Diagnosis: seizure History of Present Illness Patient is a 24-year-old female who reports to ER for a CC of seizures. According to bystanders, patient was at [facility] when seizures took place. Patient's first seizure lasted around 1 minute. Bystanders then helped the patient to the ground. Throughout this experience patient experienced no trauma. After the seizure patient had a 30 second phase of being postictal and then had two other seizures that were about 1 minute long each. After the other seizures ambulance was called and patient was transported to ED. Patient complained of headaches but she states they have now resolved. En route to the ED patient had a Accu- Chek of 64 and was given 1 mg of glucagon IV. Patient denies any nausea or vomiting. Patient uses Keppra at this time. Patient was seen at [facility] yesterday and was discharged. Patient states compliance with all her medications. While in the emergency department the patient was evaluated by the provider, As per provider: Labs, vital signs, and imagining monitored. Patient will be admitted for further evaluation and treatment. I discussed admission with the patient/family and is in agreement to treatment plan Patient Family History: Diabetes mellitus GRANDMOTHER Allergies: Coded Allergies: NO KNOWN ALLERGIES (Unverified , 01/27/25) Home Meds Active Scripts Levetiracetam (Keppra) 1,000 Mg Tab, 1 TAB PO BID, #60 TAB 5 Refills Prov:GREGOR MORRISSEY SCREW MACHINE OPERATOR [employer]ING[employer]LE 01/31/25 Medroxyprogesterone Acetate (PROVERA) 5 Mg Tab, 2 TAB PO DAILY for 10 Days, #20 TAB 11 Refills Prov:ALE BIANCHI COLOR DEPOSITING MACHINE TENDER 01/29/25 Reported Medications Diazepam (Anticonvulsant) (Valtoco) 5 Mg/0.1 Ml Spr, 1 SPRAY TIN PRN 01/28/25 Current Medications Current Medications Medications (Trade) Dose Ordered Sig/Raul Route PRN Reason Start Time Stop Time Status Last Admin Sodium Chloride 1,000 ml @ 120 mls/hr Q8H20M IV 03/07/25 18:00 Acetaminophen/ Hydrocodone Bitart ([place] 5/325MG Tab) 1 tab Q4HP PRN PO MODERATE PAIN (4-6 PAIN SCALE) 03/07/25 18:00 Acetaminophen (Tylenol Tablet) 650 mg Q6HP PRN PO PAIN SCALE 1-3 OR TEMP>100.4 03/07/25 18:00 Levetiracetam 100 ml @ 400 mls/hr BID IV 03/07/25 22:00 Lorazepam (Ativan Inj) 1 mg Q2HP PRN IV SEIZURES 03/07/25 18:00 Nitroglycerin (Ntrostat Sublingual) 0.4 mg Q5MINP PRN SL FOR CHEST PAIN 03/07/25 18:00 Morphine Sulfate 2 mg Q30M PRN IV FOR CHEST PAIN 03/07/25 18:00 Review of Systems Constitutional: denies chills, denies fever, denies malaise Eyes: denies eye pain, denies vision change ENT: denies ear pain, denies headache, denies nasal congestion, denies painful swallowing, denies voice change Cardiovascular: denies chest pain, denies edema, denies orthopnea, denies palpitations, denies paroxysmal nocturnal dyspnea Respiratory: denies cough, denies shortness of breath Gastrointestinal: denies constipation, denies diarrhea, denies nausea, denies vomiting Genitourinary: denies dysuria, denies frequent urination, denies urethral discharge Musculoskeletal: denies back pain, denies joint pain, denies muscle pain Skin: denies bruising, denies itching, denies rash Neurological: denies focal weakness, denies headache, denies sensory changes Psychiatric: denies anxiety, denies depression Endocrine: denies polydipsia, denies polyuria Hematologic/Lymphatic: denies easy bleeding, denies easy bruising, denies enlarged lymph nodes Allergic/Immunologic: denies allergy, denies hives Vital Signs Vital Signs Date Time Temp Pulse Resp B/P (MAP) Pulse Ox O2 Delivery O2 Flow Rate FiO2 03/07/25 19:00 66 16 100/65 (77) 100 03/07/25 15:00 98.0 98.0 03/07/25 15:00 Room Air* 0 21 Physical Exam General Appearance: alert, no distress HEENT: EOMI, PERRLA, normal external inspect of ears, no icterus, no nasal drainage Neck: no carotid bruit, no jugular venous distention (JVD), no lymphadenopathy Chest: normal thorax Respiratory: clear to auscultation, normal air movement Cardiovascular: regular rate and rhythm, no diastolic murmur, no jugular venous distention (JVD), no rub, no systolic murmur Abdominal: soft, no hepatomegaly, no mass, no splenomegaly, no tenderness Genitourinary: grossly normal external Musculoskeletal: no joint tenderness, no swelling Extremities: normal pulses, no calf tenderness, no clubbing, no cyanosis, no edema Skin: no bruising, no jaundice, no rash Neurological: alert, No focal deficit Results Labs Test 03/07/25 14:54 03/07/25 13:36 Range/Units POC Glucose 63 L 70-106 mg/dl White Blood Count 8.1 4.4-10.8 10^3/uL Red Blood Count 4.13 4.0-5.20 10^6/uL Hemoglobin 10.5 L 12.2-16.2 g/dL Hematocrit 33.7 L 36.0-46.0 % Mean Corpuscular Volume 81.7 80.0-100.0 fL Mean Corpuscular Hemoglobin 25.5 L 28.0-32.0 pg Mean Corpuscular Hemoglobin Concent 31.3 L 32.0-36.0 g/dL Red Cell Distribution Width 24.5 H 11.8-14.3 % Platelet Count 387 140-450 10^3/uL Mean Platelet Volume 7.6 6.9-10.8 fL Neutrophils (%) (Auto) 77.8 37.0-80.0 % Lymphocytes (%) (Auto) 15.0 10.0-50.0 % Monocytes (%) (Auto) 6.0 0.0-12.0 % Eosinophils (%) (Auto) 0.8 0.0-7.0 % Basophils (%) (Auto) 0.4 0.0-2.0 % Neutrophils # (Auto) 6.3 1.6-8.6 10 ^3/uL Lymphocytes # (Auto) 1.2 0.4-5.4 10 ^3/uL Monocytes # (Auto) 0.5 0-1.3 10 ^3/uL Eosinophils # (Auto) 0.1 0-0.8 10 ^3/uL Basophils # (Auto) 0 0-0.2 10 ^3/uL Nucleated Red Blood Cells 0.1 % Sodium Level 138 136-145 mmol/L Potassium Level 4.0 3.5-5.1 mmol/L Chloride Level 111 H 98-107 mmol/L Carbon Dioxide Level 20 20-31 mmol/L Anion Gap 7 5-15 Blood Urea Nitrogen 8 L 9-23 mg/dL Creatinine 0.93 0.550-1.02 mg/dL Glomerular Filtration Rate Calc 89 >90 mL/min BUN/Creatinine Ratio 8.6 L 10.0-20.0 Serum Glucose 78 74-106 mg/dL Calcium Level 9.6 8.7-10.4 mg/dL Plan 1. Breakthrough seizures Monitor, antiepileptics, seizure precautions 2. Hypoglycemia Monitor, hypoglycemia protocol 3. Epilepsy Monitor, monitor in telemetry 4. Microcytic anemia Monitor, SCD's, daily labs Plan discussed with: Patient, Other ALE BIANCHI NP March 07, 2025 17:57
[2025-03-07] MEDS ORDERED: NITROGLYCERIN 0.4 MG SL TAB SL PRN (18:00)
[2025-03-07] MEDS ORDERED: ACETAMINOPHEN 325 MG TAB PO PRN (18:00)
[2025-03-07] MEDS ORDERED: MORPHINE SULFATE INJ 2 MG/ml SYRG IV PRN (18:00)
[2025-03-07] MEDS ORDERED: HYDROcodone-ACET 5/325MG TAB PO PRN (18:00)
[2025-03-07] MEDS: SODIUM CHLORIDE 0.9% 1,000 ML IV SCH (19:50)
[2025-03-07] MEDS: LORazepam 2MG/ML-1ML VIAL IV PRN (20:15)
--- NOTE | 2025-03-07 20:52 | BSKYNEURO ---
[place] [facility] Note # Demographics Consult Type: General Neurology Patient Location: Inpatient First Name: Regina Last Name: Nicko Date of : 2000 Age: 24 Gender: Female Facility: [facility] Time of Initial Page ( Time): 03/07/2025 18:17 Time of Return Call ( Time): 03/07/2025 18:17 # HPI Chief Complaint: - seizure History: 24 yo F with hx of epilepsy p/w 3 seizures. They were witnessed by bystanders. She lost consciousness and had generalized convulsion. Each episode lasted about 1 min. She denied tongue biting or urinary/bowel incontinence. Her seizure started in Sep 2024 and she had work up and follows up with her neurologist Dr. Godwin. Currently on Keppra 1g BID. Seizure frequently: monthly. Back to baseline. # Exam Mental Status: - awake - alert and oriented x 3 - follows commands Language: - normal speech - no aphasia - no dysarthria Cranial Nerves: - extra ocular movements intact - no facial droop - normal facial sensation Motor: - normal strength - normal bulk - no drift Sensory: - normal sensation Cerebellar: - normal cerebellar exam # ROS Additional: - complete review of systems otherwise negative # PMH-FH-SH Past Medical History: - seizure # Assessment Impression: Breakthrough seizures # Plan Medication: Keppra 1500 mg load now, then increase Keppra to 1500 mg BID Other: - If patient has any neurological deterioration please call me back immediately - telemetry monitoring - seizure precautions - Outpatient follow up with her neurologist # Logistics Attestation of consult completion: The patient is located at: [facility]. Facility staff participated in the visit. I performed this telemedicine visit from my offsite office utilizing interactive 2 way audio and visual telecommunication technology. Total time spent in telemedicine encounter: I spent 21 minutes reviewing clinical data and/or imaging, obtaining history, examining the patient, communicating with the onsite care team, and in preparation of this report. # Demographics First Name: Regina Last Name: Nicko Facility: [facility] Electronically signed at 03/07/2025 20:50 ( Time) by Elías Gutiérrez MD Yes ELÍAS GUTIÉRREZ MD March 07, 2025 20:52
[2025-03-07 21:49] VITALS: BP 97/58; PULSE 70; RESP 16; TEMP 98.6; O2SAT 100
[2025-03-07 22:00] VITALS: BP 97/50; PULSE 70; RESP 16; TEMP 98.6; O2SAT 100
[2025-03-07] MEDS: levETIRAcetam 1000 mg/100ml 100 ML IV SCH (22:18)
[2025-03-07] MEDS ORDERED: CLON-853 PO (23:06)
[2025-03-08] VITALS (8 sets, daily range): BP systolic 96–120; BP diastolic 48–77; PULSE 55–98; RESP 16–20; TEMP 96.2–98.7; O2SAT 94–100
[2025-03-08 07:46] LABS: Basophils # (auto) 0 10 ^3/uL (0-0.2); Eosinophils # (auto) 0.1 10 ^3/uL (0-0.8); Neutrophils # (auto) 3.7 10 ^3/uL (1.6-8.6); White Blood Cell 5.3 10^3/uL (4.4-10.8)
[2025-03-08 07:49] LABS: Basophils % (auto) 0.8 % (0.0-2.0); Hematocrit 31.1 % (36.0-46.0); Hemoglobin 9.8 g/dL (12.2-16.2); Lymphocytes % (auto) 19.2 % (10.0-50.0); Mean Corpuscular Hemoglobin 25.7 pg (28.0-32.0); Mean Corpuscular Hgb Conc. 31.6 g/dL (32.0-36.0); Mean Corpuscular Volume 81.3 fL (80.0-100.0); Monocytes # (auto) 0.5 10 ^3/uL (0-1.3); Monocytes % (auto) 8.6 % (0.0-12.0); Neutrophils % (auto) 69.4 % (37.0-80.0); Platelet Count (auto) 353 10^3/uL (140-450); Red Blood Cells 3.83 10^6/uL (4.0-5.20)
[2025-03-08 07:55] LABS: Alanine Aminotransferase 11 U/L (7-40); Alkaline Phosphatase 49 U/L (46-116); Anion Gap 8 (5-15); BUN/Creatinine Ratio 12.8 (10.0-20.0); Blood Urea Nitrogen 12 mg/dL (9-23); Calcium 9.2 mg/dL (8.7-10.4); Carbon Dioxide 21 mmol/L (20-31); Glucose 84 mg/dL (74-106); Potassium 4.2 mmol/L (3.5-5.1); Sodium 139 mmol/L (136-145); Total Protein 6.9 g/dL (5.7-8.2)
[2025-03-08 07:56] LABS: Albumin 4.1 g/dL (3.2-4.8); Aspartate Aminotransferase 20 U/L (13-40); Bilirubin, Total 0.6 mg/dL (0.2-1.0)
[2025-03-08 07:59] LABS: Chloride 110 mmol/L (98-107)
--- NOTE | 2025-03-08 08:46 | DVHPN2 ---
Progress Note - Dictate Date Seen: March 08, 2025 Medical Necessity Reason Pt with a Central, PICC or Fol: No vital signs Vital Sign Date Time Temp Pulse Resp B/P (MAP) Pulse Ox O2 Delivery O2 Flow Rate FiO2 03/08/25 05:17 98.7 72 20 117/77 (90) 98 98.7 03/07/25 21:49 Room Air* 0 21 Total Intake and Output 03/07/25 03/07/25 03/08/25 15:00 23:00 07:00 Intake Total 100 ml 1240 ml Balance 100 ml 1240 ml medications Current Medications Medications Dose Ordered Sig/Raul Route Start Time Stop Time Status Last Admin Dose Admin Sodium Chloride 1,000 ml @ 120 mls/hr Q8H20M IV 03/07/25 18:00 03/08/25 05:22 120 MLS/HR Acetaminophen/ Hydrocodone Bitart 1 tab Q4HP PRN PO 03/07/25 18:00 Acetaminophen 650 mg Q6HP PRN PO 03/07/25 18:00 Levetiracetam 100 ml @ 400 mls/hr BID IV 03/07/25 22:00 03/07/25 22:18 400 MLS/HR Lorazepam 1 mg Q2HP PRN IV 03/07/25 18:00 03/07/25 20:15 1 MG Nitroglycerin 0.4 mg Q5MINP PRN SL 03/07/25 18:00 Morphine Sulfate 2 mg Q30M PRN IV 03/07/25 18:00 objective General Appearance: alert, no distress HEENT: EOMI, PERRLA, normal external inspect of ears, no icterus, no nasal drainage Neck: no carotid bruit, no jugular venous distention (JVD), no lymphadenopathy Chest: normal thorax Respiratory: clear to auscultation, normal air movement Cardiovascular: regular rate and rhythm, no diastolic murmur, no jugular venous distention (JVD), no rub, no systolic murmur Abdominal: soft, no hepatomegaly, no mass, no splenomegaly, no tenderness Genitourinary: grossly normal external Musculoskeletal: no joint tenderness, no swelling Extremities: normal pulses, no calf tenderness, no clubbing, no cyanosis, no edema Skin: no bruising, no jaundice, no rash Neurological: alert, No focal deficit laboratory and microbiology Laboratory Tests 03/08/25 07:20 Test 03/08/25 07:20 Range/Units Serum Glucose 84 74-106 mg/dL Problem List 1. Breakthrough seizures Monitor, antiepileptics, seizure precautions 2. Hypoglycemia Monitor, hypoglycemia protocol 3. Epilepsy Monitor, monitor in telemetry 4. Microcytic anemia Monitor, SCD's, daily labs Assessment/Plan Subjective: Patient is awake and alert. Objective: Patient was admitted yesterday for breakthrough seizure. Patient was started on loading dose Keppra. Patient was seen by neurology. No further episodes of breakthrough seizure at this time. Patient has microcytic anemia. Patient has history of menorrhagia. Plan: Continue current treatment. Seizure precautions. Continue antiepileptics. Plan discussed with: Patient, Other ALE BIANCHI NP March 08, 2025 08:46
[2025-03-08] MEDS ORDERED: ONDANSETRON HCL 4 MG/2 ML VIAL IV PRN (09:45)
[2025-03-08] MEDS: levETIRAcetam 1500 mg/100ml 100 ML IV SCH (10:13)
[2025-03-09 05:00] VITALS: BP 122/70; PULSE 65; RESP 16; TEMP 98.3; O2SAT 98
[2025-03-09 08:00] VITALS: PULSE 72; PULSE 82; RESP 20; O2SAT 98
[2025-03-09 08:55] VITALS: BP 116/64; PULSE 72; RESP 20; TEMP 98.7; O2SAT 98
[2025-03-09 12:47] VITALS: BP 94/51; PULSE 56; RESP 20; TEMP 98.1; O2SAT 99
--- NOTE | 2025-03-09 14:39 | DVHDS2 ---
Discharge Summary Date of Admission March 07, 2025 at 17:54 Date of Discharge: Mar 09, 2025 Labs/Diagnostic Data: Laboratory Results Test 03/08/25 07:20 03/07/25 21:33 White Blood Count 5.3 10^3/uL (4.4-10.8) Red Blood Count 3.83 10^6/uL (4.0-5.20) Hemoglobin 9.8 g/dL (12.2-16.2) Hematocrit 31.1 % (36.0-46.0) Mean Corpuscular Volume 81.3 fL (80.0-100.0) Mean Corpuscular Hemoglobin 25.7 pg (28.0-32.0) Mean Corpuscular Hemoglobin Concent 31.6 g/dL (32.0-36.0) Red Cell Distribution Width 24.0 % (11.8-14.3) Platelet Count 353 10^3/uL (140-450) Mean Platelet Volume 7.8 fL (6.9-10.8) Neutrophils (%) (Auto) 69.4 % (37.0-80.0) Lymphocytes (%) (Auto) 19.2 % (10.0-50.0) Monocytes (%) (Auto) 8.6 % (0.0-12.0) Eosinophils (%) (Auto) 2.0 % (0.0-7.0) Basophils (%) (Auto) 0.8 % (0.0-2.0) Neutrophils # (Auto) 3.7 10 ^3/uL (1.6-8.6) Lymphocytes # (Auto) 1.0 10 ^3/uL (0.4-5.4) Monocytes # (Auto) 0.5 10 ^3/uL (0-1.3) Eosinophils # (Auto) 0.1 10 ^3/uL (0-0.8) Basophils # (Auto) 0 10 ^3/uL (0-0.2) Nucleated Red Blood Cells 0.0 % Sodium Level 139 mmol/L (136-145) Potassium Level 4.2 mmol/L (3.5-5.1) Chloride Level 110 mmol/L (98-107) Carbon Dioxide Level 21 mmol/L (20-31) Anion Gap 8 (5-15) Blood Urea Nitrogen 12 mg/dL (9-23) Creatinine 0.94 mg/dL (0.550-1.02) Glomerular Filtration Rate Calc 87 mL/min (>90) BUN/Creatinine Ratio 12.8 (10.0-20.0) Serum Glucose 84 mg/dL (74-106) Calcium Level 9.2 mg/dL (8.7-10.4) Total Bilirubin 0.6 mg/dL (0.2-1.0) Aspartate Amino Transferase (AST) 20 U/L (13-40) Alanine Aminotransferase (ALT) 11 U/L (7-40) Alkaline Phosphatase 49 U/L (46-116) Total Protein 6.9 g/dL (5.7-8.2) Albumin 4.1 g/dL (3.2-4.8) POC Glucose 74 mg/dl (70-106) Other Laboratory Tests 03/08/25 07:20 Brief Hx & Hospital Course: Patient is a 24-year-old female who reports to ER for a CC of seizures. According to bystanders, patient was at [facility] when seizures took place. Patient's first seizure lasted around 1 minute. Bystanders then helped the patient to the ground. Throughout this experience patient experienced no trauma. After the seizure patient had a 30 second phase of being postictal and then had two other seizures that were about 1 minute long each. After the other seizures ambulance was called and patient was transported to ED. Patient complained of headaches but she states they have now resolved. En route to the ED patient had a Accu- Chek of 64 and was given 1 mg of glucagon IV. Patient denies any nausea or vomiting. Patient uses Keppra at this time. Patient was seen at [facility] yesterday and was discharged. Patient states compliance with all her medications. While in the emergency department the patient was evaluated by the provider, As per provider: Labs, vital signs, and imagining monitored. Patient was admitted on March 07, 2025, for a breakthrough seizure. Patient reportedly had a seizure while at school. Patient states she has been compliant with her medications and sees neurologist Dr. Lisette Godwin outpatient. Patient was given a loading dose of Keppra in the emergency room. Tele-neuro was consulted. Patients dose of Keppra was increased to 1500 mg IV BID. No further breakthrough seizures were noted for 24 hours. Patient stated she felt fine. She was cleared for discharge and instructed to follow up with her outpatient neurologist, Dr. Lisette Godwin. The patient received proper medical treatment and medications. Vital signs, Imaging and Laboratory Work was monitored. All consults recommendations were followed as provided. There were no complaints or new complaints upon discharge, all questions and concerns were answered. Patient was advised to return to the ER or call 911 if any headaches, dizziness, shortness of breath, chest pain, bleeding, fevers, or worsening of medical condition. Patient/Family was counseled about treatment plan, medications, possible side effects, patientverbalized understanding. All questions were answered to the best of my ability. The patient symptoms improved and they are okay to be DC. Condition at Discharge: Good Final Diagnosis/Problems List Breakthrough seizures Hypoglycemia Epilepsy Microcytic anemia Discharge Disposition: Home Discharge Instruct/Medications Diet: Cardiac 2g Na,low cholest Activity: No Restrictions, As Tolerated Follow Up/Referral: pcp 1 week neurology 2 weeks Discharge Statement: "Patient was advised to return to the ER or call 911 if any headaches, dizziness, shortness of breath, chest pain, abdominal pain, bleeding, fevers, or worsening of medical condition. Patient was counseled about treatment plan, medications, possible side effects, patientverbalized understanding. All questions were answered to the best of my ability. This discharge took greater then 30 minutes in planning, reviewing documentation, counseling the patient, and discussing with other team members." ASSESSMENT ASSESSMENT Assessment breakthrough seizure ALE BIANCHI NP Mar 09, 2025 14:39
[2025-03-09 15:05] VITALS: BP 116/64; PULSE 72; RESP 20; TEMP 98.7; O2SAT 98
== END 2025-03-09 15:45 | disposition home or self-care (01) | DRG 53 ==
LOC: EDBD 11:58 → ER 11:58 → OVERFLOW 17:54 → TELE-EAST 21:42
PROVIDERS: ADMIT Nurse Practitioner; ATTEND Nurse Practitioner
DX: G40.409 Other generalized epilepsy and epileptic syndromes, not intractable, without status epilepticus (principal); G93.41 Metabolic encephalopathy; E11.649 Type 2 diabetes mellitus with hypoglycemia without coma; G82.20 Paraplegia, unspecified; D50.9 Iron deficiency anemia, unspecified; Z83.3 Family history of diabetes mellitus; Z82.49 Family history of ischemic heart disease and other diseases of the circulatory system
CPT/HCPCS: 36415; 80048; 80053; 82962; 85025; 96365; 96375; 99291; G0378

== ENCOUNTER 2025-04-24 15:14 | Emergency (ER) | payer MEDICAID ==
[~2025-04-24] VITALS: Ht 157.5 cm; Wt 88.5 kg
[~2025-04-24 15:14] MED LIST changes: +CLON-853 PO
[2025-04-24] MEDS: KETOROLAC TROMETH 60MG/2ML VIAL IM ONE (16:28)
[2025-04-24] MEDS: HYDROcodone-ACET 5/325MG TAB PO ONE (16:28)
--- NOTE | 2025-04-24 16:35 | ED.PDOC ---
History of Present Illness HPI Comments 24-year-old female presents to the ED today via EMS with a chief complaint of ankle pain x 30 minutes ago prior to arrival. Patient reports that she rolled her ankle and now has 10/10 pain to it. Patient is not able to bear weight and states that it is painful to do so. No deformities noted upon assessment. Vital signs were stable. Patient denies any head trauma. Chief Complaint: Lower Extremity Time Seen by MD: 16:30 Primary Care Provider: UNKNOWN Reviewed Notes: Nurses Notes, Medications, Allergies Allergies: Coded Allergies: NO KNOWN ALLERGIES (Unverified , 01/27/25) Home Meds Active Scripts Levetiracetam (Keppra) 1,000 Mg Tab, 1 TAB PO BID, #60 TAB 5 Refills Prov:GREGOR MORRISSEY DISTRIBUTION CENTER ASSOCIATE 01/31/25 Medroxyprogesterone Acetate (PROVERA) 5 Mg Tab, 2 TAB PO DAILY for 10 Days, #20 TAB 11 Refills Prov:ALE BIANCHI MOTOR CHECKER 01/29/25 Reported Medications Clonazepam (Clonazepam) 1 Mg Tab, 0.5 TAB PO BID for anxiety, #60 TAB 1 Refill 03/07/25 Diazepam (Anticonvulsant) (Valtoco) 5 Mg/0.1 Ml Spr, 1 SPRAY TIN PRN 01/28/25 Information Source: Patient, Emergency Med Personnel Mode of Arrival: EMS Severity: Moderate Timing: Minutes Duration: Since onset Past Medical History PAST MEDICAL HISTORY: Anemia, Seizures Surgical History: Denies all surgeries DISABILITY EXAMINER History: No Pertinent DISABILITY EXAMINER History Family History Family History: Family hx of DM, Family hx of HTN Social History Smoker: Non-Smoker Alcohol: Denies ETOH Use Drugs: Denies Drug Use Lives In: Home Constitutional: denies: chills, diaphoresis, fatigue, fever, malaise, sweats, weakness, others EENTM: denies: blurred vision, double vision, ear bleeding, ear discharge, ear drainage, ear pain, ear ringing, eye pain, eye redness, hearing loss, mouth pain, mouth swelling, nasal discharge, nose bleeding, nose congestion, nose pain, photophobia, tearing, throat pain, throat swelling, voice changes, others Respiratory: denies: cough, hemoptysis, orthopnea, SOB at rest, shortness of breath, SOB with excertion, stridor, wheezing, others Cardiovascular: denies: chest pain, dizzy spells, diaphoresis, Dyspnea on exertion, edema, irregular heart beat, left arm pain, lightheadedness, palpitations, PND, syncope, others Gastrointestinal: denies: abdomen distended, abdominal pain, blood streaked bowels, constipated, diarrhea, dysphagia, difficulty swallowing, hematemesis, melena, nausea, poor appetite, poor fluid intake, rectal bleeding, rectal pain, vomiting, others Genitourinary: denies: abnormal vagina bleeding, burning, dyspareunia, dysuria, flank pain, frequency, hematuria, incontinence, pain, , vagina discharge, urgency, others Neurological: denies: dizziness, fainting, headache, left sided numbness, left sided weakness, numbness, paresthesia, pre-existing deficit, right sided numbness, right sided weakness, seizure, speech problems, tingling, tremors, weakness, others Musculoskeletal: reports: others (Right ankle pain); denies: back pain, gout, joint pain, joint swelling, muscle pain, muscle stiffness, neck pain Integumetry: denies: bruises, change in color, change in hair/nails, dryness, laceration, lesions, lumps, rash, wounds, others Allergic/Immunocompromised: denies: Difficulty Healing, Frequent Infections, Hives, Itching, others Hematologic/Lymphatic: denies: anemia, blood clots, easy bleeding, easy bruising, swollen glands, others Endocrine: denies: excessive hunger, excessive sweating, excessive thirst, excessive urination, flushing, intolerance to cold, intolerance to heat, unexplained weight gain, unexplained weight loss, others Psychiatric: denies: anxiety, bipolar disorder, depression, hopeless, panic disorder, schizophrenia, sleepless, suicidal, others All Other Systems: Reviewed and Negative Physical Exam General Appearance: Moderate Distress ([id number] distress due to right ankle pain concerns. Patient is unable to bear weight.), Obese HEENT: Normal ENT Inspection, Pharynx Normal, TMs Normal Neck: Full Range of Motion, Non-Tender, Normal, Normal Inspection Respiratory: Chest Non-Tender, Lungs Clear, No Accessory Muscle Use, No Respiratory Distress, Normal Breath Sounds Cardiovascular: No Edema, No JVD, No Murmur, No Gallop, Normal Peripheral Pulses, Regular Rate/Rhythm Breast Exam: Deferred Gastrointestinal: No Organomegaly, Non Tender, No Pulsatile Mass, Normal Bowel Sounds, Soft Genitalia: Deferred Pelvic: Deferred Rectal: Deferred Extremities: Other (Lateral aspect of the right ankle is diffusely tender to palpation with [id number] edema noted. No ecchymosis. No erythema. Significant reduced range of motion. Patient can not bear weight.) Musculoskeletal : Apperance: Normal Neurologic: Alert, No Motor Deficits, Normal Affect, Normal Mood, No Sensory Deficits Cerebellar Function: Normal Reflexes: Normal Skin: Dry, Normal Color, Warm Lymphatic: No Adenopathy Was a procedure done? Was a procedure done?: No Differential Dx Considerations may include: Ankle fracture, ankle sprain X-Ray, Labs, Meds, VS Vital Signs Date Time Temp Pulse Resp B/P (MAP) Pulse Ox O2 Delivery O2 Flow Rate FiO2 04/24/25 16:31 98.7 64 16 98/56 (70) 94 98.7 04/24/25 16:31 64 16 94 Room Air 04/24/25 15:42 97.1 80 19 124/88 (100) 96 97.1 Current Medications Medications (Trade) Dose Ordered Sig/Raul Route Start Time Stop Time Status Last Admin Ketorolac Tromethamine (Toradol Injection) 30 mg ONCE ONCE IM 04/24/25 16:00 04/24/25 16:01 DC 04/24/25 16:28 Acetaminophen/ Hydrocodone Bitart ([place] 5/325MG Tab) 1 tab ONCE ONCE PO 04/24/25 16:00 04/24/25 16:01 DC 04/24/25 16:28 X-Ray, Labs, Meds, VS Comment All studies performed the ED were evaluated by me personally. Imaging series of the right ankle was unremarkable for any acute fractures. Patient sustained an ankle sprain. Abdirahman wrap and crutches provided. Pain medication as needed as well as ice therapy. Time of 1ST Reevaluation: 17:41 Reevaluation 1ST: Improved Consultation: PCP Patient Education/Counseling: Diagnosis, Treatment, Need For Follow Up Family Education/Counseling: Diagnosis, Treatment, No Family Present SEPSIS Sepsis Screen Date sepsis recognized/suspect: Apr 24, 2025 Time Sepsis recognized/suspect: 1520 Recent Procedure: No On Antibiotic Therapy: No Respiratory Rate >20: No Heart Rate >90: No Temp<36 C (96.8 F) or >38.3 C: No SBP <90 or MAP <65 mmHG: No New Acute Mental Status Change: No Is the patient on CPAP, BIPAP,: No Physician Orders R Ankle 3 View (04/24/25 15:57) Abdirahman Wrap: (04/24/25 17:15) Crutches And Crutch Training (04/24/25 17:23) Vital Signs Date Time Temp Pulse Resp B/P (MAP) Pulse Ox O2 Delivery O2 Flow Rate FiO2 04/24/25 16:31 98.7 64 16 98/56 (70) 94 98.7 04/24/25 16:31 64 16 94 Room Air 04/24/25 15:42 97.1 80 19 124/88 (100) 96 97.1 Medications Medications Dose Ordered Sig/Raul Route Start Time Stop Time Status Last Admin Dose Admin Acetaminophen/ Hydrocodone Bitart 1 tab ONCE ONCE PO 04/24/25 16:00 04/24/25 16:01 DC 04/24/25 16:28 Ketorolac Tromethamine 30 mg ONCE ONCE IM 04/24/25 16:00 04/24/25 16:01 DC 04/24/25 16:28 Departure 1 Departure Time of Disposition: 17:41 Impression: Primary Impression: Right ankle sprain Disposition: HOME / SELF CARE / HOMELESS Condition: Stable Additional Instructions: Advised pain medication as needed for symptomatic relief as well as ice therapy. Patient should utilize the Abdirahman wrap and crutches as long as it aid in the healing process. e-Prescriptions Acetaminophen (Acetaminophen) 500 Mg Tab 500 MG PO Q4HP PRN, #30 TAB Prov: GURMEET FLOYD PAC 04/24/25 Ibuprofen Micronized (Ibuprofen) 800 Mg Tab 800 MG PO Q8HP PRN, #20 TAB Prov: GURMEET FLOYD PAC 04/24/25 Discharged With: Self, Friend Critical Care Note Critical Care Time?: No Stability Stability form required: No Heart Score Heart Score: Heart Score Response (Comments) Value History N/A 0 EKG N/A 0 Age N/A 0 Risk Factors N/A 0 Troponin N/A 0 Total 0 I personally scribed for GURMEET FLOYD PAC ([email or web address]) on 04/24/25 at 16:35. Electronically submitted by Pacheco Nagy ([email or web address]). GURMEET FLOYD PAC Apr 24, 2025 16:35
--- NOTE | 2025-04-24 16:45 | DVH ---
XY R ANKLE 3 VIEW, INDICATION: Trauma/twist TECHNICAL DATA:Frontal , oblique and lateral views were obtained of the right ankle. COMPARISON: None FINDINGS: No fracture is identified. Joint spaces are maintained. Alignment is anatomic. Soft tissues are angella matous. IMPRESSION: No acute fracture or dislocation of the right ankle.
[2025-04-24] MEDS ORDERED: ACET500T58 PO (17:43)
[2025-04-24] MEDS ORDERED: IBUP-1455 PO (17:43)
[2025-04-24] MEDS ORDERED: DEXTROSE (50%) 50ML SYRG IV ONE (18:30)
[2025-04-24] MEDS ORDERED: levETIRAcetam 1000 mg/100ml 100 ML IV ONE (18:30)
[2025-04-24 18:53] LABS: Hematocrit 48.7 % (36.0-46.0); Hemoglobin 15.6 g/dL (12.2-16.2); Mean Corpuscular Hemoglobin 27.8 pg (28.0-32.0); Mean Corpuscular Volume 86.8 fL (80.0-100.0); Nucleated Red Blood Cells % 0.0 %
[2025-04-24 19:09] LABS: Chloride 106 mmol/L (98-107); Potassium 4.0 mmol/L (3.5-5.1); Sodium 138 mmol/L (136-145)
[2025-04-24 19:10] LABS: Anion Gap 12 (5-15); Carbon Dioxide 20 mmol/L (20-31)
[2025-04-24 19:11] LABS: Calcium 9.8 mg/dL (8.7-10.4)
[2025-04-24 19:15] LABS: BUN/Creatinine Ratio 12.2 (10.0-20.0); Blood Urea Nitrogen 12 mg/dL (9-23)
[2025-04-24 19:16] LABS: Glucose 70 mg/dL (74-106)
[2025-04-24 19:17] VITALS: PULSE 70; RESP 14; O2SAT 100
[2025-04-24] MEDS: levETIRAcetam 500 MG TAB PO ONE (20:23)
[2025-04-24 20:47] LABS: Opiate Scree,Urine Pos (NEGATIVE)
[2025-04-24 21:21] LABS: Amphetamine Screen, Urine Neg (NEGATIVE); Barbiturate Scree,Urine Neg (NEGATIVE); Benzodiazephine Screen, Urine Neg (NEGATIVE); Cannabinoid Screen, Urine Neg (NEGATIVE); Cocaine Screen, Urine Neg (NEGATIVE); Phencyclidine Screen, Urine Neg (NEGATIVE); Urine Protein, UAD 1+ (Negative)
[2025-04-24 21:30] VITALS: BP 111/75; PULSE 66; RESP 14; TEMP 97.2; O2SAT 100
== END 2025-04-24 22:18 | disposition home or self-care (01) ==
LOC: ER 15:14 → EDUNIT# 15:14 → EDBD 15:14 → ER 22:18
DX: S93.401A Sprain of unspecified ligament of right ankle, initial encounter (principal); E66.9 Obesity, unspecified; Z86.2 Personal history of diseases of the blood and blood-forming organs and certain disorders involving the immune mechanism; Z79.899 Other long term (current) drug therapy; X50.1XXA Overexertion from prolonged static or awkward postures, initial encounter; Y93.89 Activity, other specified; Y92.89 Other specified places as the place of occurrence of the external cause; Y99.8 Other external cause status; Z68.35 Body mass index [BMI] 35.0-35.9, adult
CPT/HCPCS: 36415; 73610; 80048; 80307; 81001; 82947; 85025; 96372; 99285; J1885; J7042; 82962

== ENCOUNTER 2025-09-09 18:59 | Emergency (ER) | payer MEDICAID ==
[~2025-09-09] VITALS: Ht 157.5 cm; Wt 88.6 kg
[~2025-09-09 18:59] MED LIST changes: +ACET500T58 PO; +IBUP-1455 PO
[2025-09-09] MEDS: ONDANSETRON HCL 4 MG/2 ML VIAL IV ONE (19:45)
[2025-09-09] MEDS: levETIRAcetam 1000 mg/100ml 100 ML IV ONE (20:04)
[2025-09-09 20:15] LABS: Hematocrit 46.7 % (36.0-46.0); Hemoglobin 15.4 g/dL (12.2-16.2); Mean Corpuscular Hemoglobin 30.0 pg (28.0-32.0); Mean Corpuscular Volume 90.6 fL (80.0-100.0); Nucleated Red Blood Cells % 0.1 %
[2025-09-09 20:21] LABS: Chloride 103 mmol/L (98-107); Potassium 4.7 mmol/L (3.5-5.1); Sodium 139 mmol/L (136-145)
[2025-09-09 20:22] LABS: Anion Gap 9 (5-15); Carbon Dioxide 27 mmol/L (20-31)
[2025-09-09 20:23] LABS: Calcium 10.1 mg/dL (8.7-10.4)
[2025-09-09 20:28] LABS: Glucose 76 mg/dL (74-106); Lipase 29 U/L (12-53)
--- NOTE | 2025-09-09 20:32 | ED.PDOC ---
History of Present Illness HPI Comments 23-year-old female [id number] for c/c of seizure. Significant history for seizures - on 1000mg Keppra BID, and prediabetes. Per EMS personnel report, patient had full tonic clonic seizure episode, which lasted 2 minutes in duration, at [facility]. Seizure was witnessed by bystanders. No reported signs of incontinence or tongue biting Initial on scene blood glucose of 71. Patient was reported to have initial nausea and was given Zofran in addition to D10 after coming to en route. At time of assessment patient only complaining of mild headache, and mild tongue pain (she is unsure on whether she bit her tongue during seizure). Denies any further symptoms. Last seizure was reported to have been 2-3 months ago. She is compliant with her seizure medication but is being considered to trial a new medication by her neurologist, due to patient still having seizures. She denies any social history. She denies any chest pain, shortness of breath, nausea, vomiting, weakness, numbness. Chief Complaint: Seizure Time Seen by MD: 19:15 Primary Care Provider: UNKNOWN Reviewed Notes: Nurses Notes, Medications, Allergies Allergies: Coded Allergies: NO KNOWN ALLERGIES (Unverified , 01/27/25) Home Meds Active Scripts Acetaminophen (Acetaminophen) 500 Mg Tab, 500 MG PO Q4HP PRN, #30 TAB Prov:GURMEET FLOYD PAC 04/24/25 Ibuprofen Micronized (Ibuprofen) 800 Mg Tab, 800 MG PO Q8HP PRN, #20 TAB Prov:GURMEET FLOYD PAC 04/24/25 Levetiracetam (Keppra) 1,000 Mg Tab, 1 TAB PO BID, #60 TAB 5 Refills Prov:GREGOR MORRISSEY STATISTICS INTERN 01/31/25 Medroxyprogesterone Acetate (PROVERA) 5 Mg Tab, 2 TAB PO DAILY for 10 Days, #20 TAB 11 Refills Prov:ALE BIANCHI [employer] FINISHER 01/29/25 Reported Medications Clonazepam (Clonazepam) 1 Mg Tab, 0.5 TAB PO BID for anxiety, #60 TAB 1 Refill 03/07/25 Diazepam (Anticonvulsant) (Valtoco) 5 Mg/0.1 Ml Spr, 1 SPRAY TIN PRN 01/28/25 Information Source: Patient Mode of Arrival: EMS Severity: Moderate Timing: Hours Duration: Minutes Prehospital treatment: 12 Lead EKG, Accucheck, None, Treatment (D10, Zofran) Past Medical History PAST MEDICAL HISTORY: Anemia, Seizures Past Medical History (Other): prediabetes Surgical History: Denies all surgeries DAIRY TECHNOLOGIST History: No Pertinent DAIRY TECHNOLOGIST History Family History Family History: Family hx of DM, Family hx of HTN Social History Smoker: Non-Smoker Alcohol: Denies ETOH Use Drugs: Denies Drug Use Lives In: Home All Other Systems: Reviewed and Negative (Comprehensive review of systems are n egative unless otherwise stated in HPI) Physical Exam General Appearance: No Apparent Distress, Obese HEENT: Normal ENT Inspection, Pharynx Normal, TMs Normal Neck: Full Range of Motion, Non-Tender, Normal, Normal Inspection Respiratory: Chest Non-Tender, Lungs Clear, No Accessory Muscle Use, No Respiratory Distress, Normal Breath Sounds Cardiovascular: No Edema, No JVD, No Murmur, No Gallop, Normal Peripheral Pulses, Regular Rate/Rhythm Breast Exam: Deferred Gastrointestinal: No Organomegaly, Non Tender, No Pulsatile Mass, Normal Bowel Sounds, Soft Genitalia: Deferred Pelvic: Deferred Rectal: Deferred Extremities: No calf tenderness, Normal capillary refill, Normal inspection, Normal range of motion, Non-tender, No pedal edema Musculoskeletal : Apperance: Normal Neurologic: Alert, stretcher helper II-XII nml as Tested, No Motor Deficits, Normal Affect, Normal Mood, No Sensory Deficits Cerebellar Function: Normal Reflexes: Normal Skin: Dry, Normal Color, Warm Lymphatic: No Adenopathy Was a procedure done? Was a procedure done?: No Differential Dx Considerations may include: seizure - status, inappropriate medication dosage, inappropriate medication, hypoglycemia, dehydration, electrolyte imbalance, among others X-Ray, Labs, Meds, VS Vital Signs Date Time Temp Pulse Resp B/P (MAP) Pulse Ox O2 Delivery O2 Flow Rate FiO2 09/09/25 20:34 98.3 63 14 118/67 (84) 100 98.3 09/09/25 20:34 63 14 100 Room Air* 0 21 09/09/25 18:59 97.6 65 20 143/84 100 97.6 Lab Test 09/09/25 20:49 09/09/25 19:58 Range/Units Troponin I High Sensitivity < 3 L < 3 L </=34 ng/L White Blood Count 8.1 4.4-10.8 10^3/uL Red Blood Count 5.16 4.0-5.20 10^6/uL Hemoglobin 15.4 12.2-16.2 g/dL Hematocrit 46.7 H 36.0-46.0 % Mean Corpuscular Volume 90.6 80.0-100.0 fL Mean Corpuscular Hemoglobin 30.0 28.0-32.0 pg Mean Corpuscular Hemoglobin Concent 33.1 32.0-36.0 g/dL Red Cell Distribution Width 13.3 11.8-14.3 % Platelet Count 300 140-450 10^3/uL Mean Platelet Volume 8.0 6.9-10.8 fL Neutrophils (%) (Auto) 64.5 37.0-80.0 % Lymphocytes (%) (Auto) 26.1 10.0-50.0 % Monocytes (%) (Auto) 7.3 0.0-12.0 % Eosinophils (%) (Auto) 1.3 0.0-7.0 % Basophils (%) (Auto) 0.8 0.0-2.0 % Neutrophils # (Auto) 5.2 1.6-8.6 10 ^3/uL Lymphocytes # (Auto) 2.1 0.4-5.4 10 ^3/uL Monocytes # (Auto) 0.6 0-1.3 10 ^3/uL Eosinophils # (Auto) 0.1 0-0.8 10 ^3/uL Basophils # (Auto) 0.1 0-0.2 10 ^3/uL Nucleated Red Blood Cells 0.1 % Sodium Level 139 136-145 mmol/L Potassium Level 4.7 3.5-5.1 mmol/L Chloride Level 103 98-107 mmol/L Carbon Dioxide Level 27 20-31 mmol/L Anion Gap 9 5-15 Blood Urea Nitrogen 16 9-23 mg/dL Creatinine 0.77 0.550-1.02 mg/dL Glomerular Filtration Rate Calc 111 >90 mL/min BUN/Creatinine Ratio 20.8 H 10.0-20.0 Serum Glucose 76 74-106 mg/dL Calcium Level 10.1 8.7-10.4 mg/dL B-Type Natriuretic Peptide 2.80 0-100 pg/mL Lipase 29 12-53 U/L Current Medications Medications (Trade) Dose Ordered Sig/Raul Route Start Time Stop Time Status Last Admin Levetiracetam 100 ml @ 400 mls/hr ONCE ONCE IV 09/09/25 19:45 09/09/25 19:59 DC 09/09/25 20:04 Time of 1ST Reevaluation: 19:55 Reevaluation 1ST: Unchanged Patient Education/Counseling: Diagnosis, Treatment, Need For Follow Up Family Education/Counseling: No Family Present SEPSIS Sepsis Screen Date sepsis recognized/suspect: Sep 09, 2025 Time Sepsis recognized/suspect: 1856 Recent Procedure: No On Antibiotic Therapy: No Respiratory Rate >20: No Heart Rate >90: No Temp<36 C (96.8 F) or >38.3 C: No SBP <90 or MAP <65 mmHG: No New Acute Mental Status Change: No Is the patient on CPAP, BIPAP,: No Physician Orders Electrocardigram (09/09/25 19:33) Troponin-I Hs (09/09/25 22:33) Electrocardigram (09/09/25 20:33) Electrocardigram (09/09/25 22:33) Vital Signs Date Time Temp Pulse Resp B/P (MAP) Pulse Ox O2 Delivery O2 Flow Rate FiO2 09/09/25 20:34 98.3 63 14 118/67 (84) 100 98.3 09/09/25 20:34 63 14 100 Room Air* 0 21 09/09/25 18:59 97.6 65 20 143/84 100 97.6 Laboratory Tests Test 09/09/25 19:58 White Blood Count 8.1 10^3/uL (4.4-10.8) Medications Medications Dose Ordered Sig/Raul Route Start Time Stop Time Status Last Admin Dose Admin Levetiracetam 100 ml @ 400 mls/hr ONCE ONCE IV 09/09/25 19:45 09/09/25 19:59 DC 09/09/25 20:04 Departure 1 Departure Time of Disposition: 21:48 (On reassessment, patient's symptoms improved. Patient with 1 episode of emesis while in the ED, so given IV Zofran with resolution of symptoms. Labs unremarkable including troponin negative x2. Given IV Keppra and no further seizure-like activity while in the ED. Discussed with patient need for outpatient follow-up with neurologist for further evaluation and management of her chronic seizures. Given strict return precautions and PMD and Neurology follow up.) Impression: Primary Impression: Seizure Additional Impression: Acute nausea with nonbilious vomiting Disposition: HOME / SELF CARE / HOMELESS Condition: Stable Discharged With: Self Critical Care Note Critical Care Time?: No Stability Stability form required: No Heart Score Heart Score: Heart Score Response (Comments) Value History N/A 0 EKG N/A 0 Age N/A 0 Risk Factors N/A 0 Troponin N/A 0 Total 0 I personally scribed for VÍCTOR THOMPSON MD ([email or web address]) on 09/09/25 at 20:32. Electronically submitted by Jaun Lopez [email or web address]). VÍCTOR THOMPSON MD Sep 09, 2025 20:32
[2025-09-09 20:34] VITALS: PULSE 63; RESP 14; O2SAT 100
[2025-09-09 21:32] LABS: BUN/Creatinine Ratio 20.8 (10.0-20.0); Blood Urea Nitrogen 16 mg/dL (9-23)
[2025-09-09 22:00] VITALS: BP 107/60; PULSE 57; RESP 13; TEMP 98.4; O2SAT 100
== END 2025-09-09 22:13 | disposition home or self-care (01) ==
LOC: EDBD 18:59 → EDUNIT# 18:59 → ER 18:59
DX: R56.9 Unspecified convulsions (principal); R11.2 Nausea with vomiting, unspecified; Z79.899 Other long term (current) drug therapy
CPT/HCPCS: 36415; 80048; 83690; 83880; 84484; 85025; 96365; 99284; J1953